=== PATIENT | male | born 1955 | race Caucasian/White ===

== ENCOUNTER 2019-03-25 13:01 | Outpatient (RCR) | payer MEDICARE, OTHER, SELFPAY ==
--- NOTE | 2019-04-01 14:12 | PTOPEVAL ---
Thank you for referring this patient to [facility]. Please review, sign, date and return this plan of care LENORA. I agree with and certify that the following plan of care is medically necessary. Referring Physician Date Admitting Provider: Attending Provider: PHYSICIAN NOT ON STAFF Referring Provider: *PT Outpatient Evaluation Start: 03/25/19 13:19 Freq: Status: Active Protocol: Document 03/25/19 13:15 J (Rec: 03/25/19 14:19 Cb [id number]) Therapy Assessment Status Assessment Status Assessment Status Evaluation Evaluation Information Problem Diagnosis s/p L SAGAR Onset 03/22/19 Subjective Information patient reports he had a total Query Text:As Reported By Patient/ hip replacement of the L hip Family on friday of this week. he reports he was in the hospital for friday night and came home friday. he reports he struggles with his walking, transfers, and home activities . he reports he lives alone. he reports he has 4 steps to enter and leave his home. he is unsure of which type of surgical procedure he had performed. Prior Level of Function Comments Additional Prior Level of Function prior to surgery, he reports Comments he was using a cane at home to ambulate at times, but reports he was able to get around without anything. he reports he was able to drive prior to surgery. Pain Assessment Timing of Pain Assessment Timing of Pain Assessment Assessment Pain Scale Pain Scale Used Numeric (1 - 10) Self Report Pain Assessment Left Hip(s) Reported Pain Level 4 Pain Description Aching,Dull Pain Frequency Acute Current Pain Intensity 4 Lowest Pain Intensity 3 Greatest Pain Intensity 8 Pain Aggravating Factors Changing Position,Walking, Weight Bearing/Standing Pain Relief Interventions Used By Medication Patient Other Alleviating Interventions norco, tramadol Pain Score Pain Score 4: Self Report Lower Extremity Range of Motion Hip Range of Motion Left Hip Flexion Range of Motion - Active 0 Hip Flexion Range of Motion - Passive 80 Hip Abduction Range of Motion - Passive 20 Hip Lateral Rotation - Active
--- NOTE | 2019-04-12 14:42 | PCPTNOTE ---
Patient cancelled treatment today. FRANCISCO
--- NOTE | 2019-04-29 13:41 | PCPTNOTE ---
04/29/19 - new order today per MD office. no restrictions in abduction or ER ROM. JTF
--- NOTE | 2019-05-04 15:22 | PTOPEVAL ---
Thank you for referring this patient to [facility]. Please review, sign, date and return this plan of care [facility]. I agree with and certify that the following plan of care is medically necessary. Referring Physician Date Admitting Provider: Attending Provider: PHYSICIAN NOT ON STAFF Referring Provider: *PT Outpatient Evaluation Start: 03/25/19 13:19 Freq: Status: Active Protocol: Document 05/04/19 13:00 Cb (Rec: 05/04/19 15:22 [facility] [id number]) Therapy Assessment Status Assessment Status Assessment Status Re-evaluation Evaluation Information Problem Diagnosis s/p L SAGAR Subjective Information patient reports he feels good Query Text:As Reported By Patient/ This date. he reports he Family still struggles with walking and strength in the L hip and LE. however, he is also complicated by weakness and pain in the R hip. he reports he has new orders to continue therapy from his MD. Pain Assessment Timing of Pain Assessment Timing of Pain Assessment Assessment Self Report Self Report Pain Level 0 Pain Score Pain Score 0: Self Report Additional Pain Score Comments 2/10 pain at worst in the last week. Lower Extremity Range of Motion Hip Range of Motion Left Hip Flexion Range of Motion - Active 75 Hip Flexion Range of Motion - Passive 85 Hip Abduction Range of Motion - Passive 35 Hip Lateral Rotation - Active 30 Lower Extremity Muscle Strength Testing Hip Strength Left Hip Flexion Strength 2+ Poor + Knee Strength Left Knee Flexion Strength 4+ Good + Knee Extension Strength 4 Good Gait Assessment Gait Assessment Additional Ambulation Comments patient ambulates with a scp in the R hand this date. patient ambulates with R trunk /trendelemburg lean and posterio hip thrust/forward trunk lean with R SLS phase of gait. PT Clinical Summary Clinical Summary Protocol: PTEVCODE Clinical Summary mr. harden tolerates therapy moderately well this date. he still presents with significant weakness, decreased rom, decreased flexibility, and overall poor ambulation endurance and mechanics. he would do well to continue skille
--- NOTE | 2019-05-20 13:15 | PCPTNOTE ---
05/20/19-pt called and cancelled, no reason stated.-
== END 2019-06-04 14:09 | disposition home or self-care (01) ==
LOC: CHSPT 13:01
DX: M16.12 Unilateral primary osteoarthritis, left hip (principal); M25.552 Pain in left hip; M25.551 Pain in right hip
CPT/HCPCS: 97110; 97161; 97530

== ENCOUNTER 2019-10-13 13:59 | Outpatient (RCR) | payer MEDICARE, OTHER, SELFPAY ==
--- NOTE | 2019-10-13 15:06 | PTOPEVAL ---
Thank you for referring Burton Rubi to [facility]. Please review, sign, date and return this plan of care LENORA. I agree with and certify that the following plan of care is medically necessary. Referring Physician Date Admitting Provider: Attending Provider: PHYSICIAN NOT ON STAFF Referring Provider: *PT Outpatient Evaluation Start: 10/13/19 14:12 Freq: Status: Active Protocol: Document 10/13/19 14:10 [facility] (Rec: 10/13/19 14:43 [facility] [id number]) Therapy Assessment Status Assessment Status Assessment Status Evaluation Evaluation Information Problem Diagnosis s/p R SAGAR Onset 09/07/19 Subjective Information patient reports he had the R Query Text:As Reported By Patient/ hip replacement on 09/07/19. Family he reports he was previously herre for replacement of the L hip in March. he reports he was told to hold off from therapy until his first follow up with . he reports he is now ready to begin outpatient physical therapy. he reports he is unsure of the type of replacement he had performed. he reports he does not have any precautions. Prior Level of Function Comments Additional Prior Level of Function patient reports he was working Comments on rehab of his L hip and preperation for the R hip for the past 3-6 monts. 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 he reports he works for the [employer] at the [employer]. Pain Assessment Timing of Pain Assessment Timing of Pain Assessment Assessment Pain Scale Pain Scale Used Numeric (1 - 10) Self Report Pain Assessment Right Hip(s) Reported Pain Level 0 Lowest Pain Intensity 0 Greatest Pain Intensity 0 Pain Score Pain Score 0: Self Report Lower Extremity Range of Motion General Lower Extremity Range of Motion Gross Lower Extremity Range of Motion -arom L hip flexion = 75 Comments degrees, prom L hip flexion = 90 degrees arom L hip ER = 45 degrees -arom R hip flexion = 65 degrees, prom R hip flexion =
--- NOTE | 2019-12-01 15:29 | PTOPEVAL ---
Thank you for referring Burton Rubi to [facility].? The patient is scheduled to be seen for therapy? ____x/week for ___ weeks. Please review, sign, date and return this plan of care LENORA. I agree with and certify that the following plan of care is medically necessary. Referring Physician Date Admitting Provider: Attending Provider: PHYSICIAN NOT ON STAFF Referring Provider: *PT Outpatient Evaluation Start: 10/13/19 14:12 Freq: Status: Active Protocol: Document 12/01/19 14:00 Cb (Rec: 12/01/19 15:28 [facility] [id number]) Therapy Assessment Status Assessment Status Assessment Status Re-evaluation Evaluation Information Problem Diagnosis s/p R SAGAR Subjective Information patient reports he feels good Query Text:As Reported By Patient/ this date. he reports he has Family no pain. he reports he has been back to the MD for follow up and reports he is to continue skilled PT for further strengthening and exercises to improve his ambulation and mobility. Pain Assessment Timing of Pain Assessment Timing of Pain Assessment Assessment Self Report Self Report Pain Level 0 Pain Score Pain Score 0: Self Report Lower Extremity Range of Motion General Lower Extremity Range of Motion Gross Lower Extremity Range of Motion prom R hip flexion to 70 Comments degrees Lower Extremity Muscle Strength Testing Hip Strength Right Hip Flexion Strength 4- Good - Hip Abduction Strength 4- Good - Left Hip Flexion Strength 4- Good - Hip Abduction Strength 4- Good - Knee Strength Bilateral Knee Flexion Strength 5 Normal Knee Extension Strength 5 Normal Muscle Length Testing Muscle Length Testing Left Hamstring Length 40 Query Text:(90 - 90 Position) Right Hamstring Length 50 Query Text:(90 - 90 Position) Gait Assessment Gait Assessment Ambulation Assistive Devices Cane Ambulation Distance 200 Query Text:(Feet) Additional Ambulation Comments patient ambulates with spc this date. he ambulates with flexed posture at the hips and lumbar spine still, but improved step/stride length bilaterally. he still presents with slow kit and poor stride length overall. patient ambulates up and down steps with marked time pattern and
--- NOTE | 2019-12-20 17:33 | PCPTNOTE ---
patient called and cancelled appt for today. FRANCISCO
--- NOTE | 2019-12-22 14:53 | PCPTNOTE ---
patient called and cancelled appt for today. FRANCISCO
--- NOTE | 2020-01-21 12:57 | PTOPEVAL ---
Thank you for referring Burton Rubi to [facility].? The patient is scheduled to be seen for therapy? ____x/week for ___ weeks. Please review, sign, date and return this plan of care LENORA. I agree with and certify that the following plan of care is medically necessary. Referring Physician Date Admitting Provider: Attending Provider: PHYSICIAN NOT ON STAFF Referring Provider: *PT Outpatient Evaluation Start: 10/13/19 14:12 Freq: Status: Discharge Protocol: Document 01/13/20 13:00 Cb (Rec: 01/20/20 21:49 [facility] [id number]) Therapy Assessment Status Assessment Status Assessment Status Re-evaluation Evaluation Information Problem Diagnosis s/p R SAGAR Subjective Information patient reports he feels good Query Text:As Reported By Patient/ this date. he reports no Family pain in the hips, but still weakness with walking and standing. he reports he is particpating in work activities, but reports he is unable to walk hardly any distances still. Pain Assessment Timing of Pain Assessment Timing of Pain Assessment Assessment Self Report Self Report Pain Level 0 Pain Score Pain Score 0: Self Report Lower Extremity Range of Motion General Lower Extremity Range of Motion Gross Lower Extremity Range of Motion sitting bilateral hip flexion Comments AROM = 100 degrees Lower Extremity Muscle Strength Testing General Lower Extremity Strength Gross Lower Extremity Strength L hip flex = 4/5, L hip abd = 4/5 R hip flex = 4-/5, R hip abd = 3+/5 bilateral knee strength = 5/5 patient is unable to hold a SLS on the R LE without immeidate hip drop on the L side and L foot contact back to the floor. Gait Assessment Gait Assessment Additional Ambulation Comments jaquelin attempts to walk the past 2 weeks without a cane. howver, he presents with significant trendelemburg hip drop of the L hip during R SLS . this results also in short bilateral strides, decreased kit, decreased endurance, and patient also presents with a more flexed posture at the hips.
--- NOTE | 2020-02-16 07:28 | PCPTNOTE ---
02/16/20 - patient called and reports he has been released by his surgeon. he reports he would like to DC therapy. as of this date, all progress towards goals will be taken from his most recent evaluation/note.
== END 2020-01-31 23:59 | disposition home or self-care (01) ==
LOC: CHSPT 13:59
PROVIDERS: PCP Internal Medicine
DX: M25.551 Pain in right hip (principal); Z96.643 Presence of artificial hip joint, bilateral
CPT/HCPCS: 97110; 97161; 97530

== ENCOUNTER 2021-07-04 00:39 | Day surgery (SDC) | payer MEDICARE, OTHER, SELFPAY ==
[2021-06-21 13:16] VITALS: BMI 32.8
[2021-07-04 06:47] VITALS: BP 176/79; PULSE 84; RESP 18; TEMP 36.3; O2SAT 99; BMI 33.2
[2021-07-04] MEDS: LACTATED RINGERS 1,000 ML 150 ML IV CONT (07:10)
--- NOTE | 2021-07-04 07:54 | PM.HPGS ---
History of Present Illness History of Present Illness Consent: Risks, benefits, and alternatives have been discussed and questions answered. Patient agrees to proceed with procedure. Chief complaint: positive cologuard Narrative: Burton Rubi is a 66 year old male here for first colonoscopy, had + cologuard Review of Systems Constitutional: Constitutional: Denies headache(s) and Denies weakness Eyes: Eyes: Denies blurry vision ENT: Reports Normal hearing present, Denies headache(s) and Denies neck pain Cardiovascular: Cardiovascular: Denies chest pain and Denies dyspnea Respiratory: Respiratory: Denies dyspnea Gastrointestinal: Gastrointestinal: Reports no additional gastrointestinal complaints Genitourinary: Genitourinary: Denies dysuria Musculoskeletal: Musculoskeletal: Denies neck pain Integumentary/Breasts: Skin/Breast: Denies dry skin Neurologic: Reports Normal hearing present, Denies headache(s) and Denies weakness Psychiatric: Psychiatric: Denies anxiety Endocrine: Endocrine: Denies change in body appearance Hematologic/Lymphatic: Hematologic/Lymphatic: Denies easy bleeding Allergic/Immunologic: Allergic/Immunologic: Denies urticaria PMFSH Past Medical History Medical History (Updated 07/04/21 @ 07:55 by Maurice Coleman MD) Positive colorectal cancer screening using Cologuard test Family History Family History (Updated 05/25/18 @ 08:51 by DOCTOR UNKNOWN) Father Family history of malignant neoplasm of urinary bladder, Onset Age: 3 Other Family history of malignant neoplasm Social History Social History Smoking status: Never smoker Alcohol intake: current Drinks per week: 6 Substance use type: does not use Living arrangements: alone Spiritual care concerns: No Meds Home Medications and Allergies Home Medications Medication Instructions Recorded Confirmed Type No Home Medications 06/21/21 07/04/21 History Allergies Allergy/AdvReac Type Severity Reaction Status Date / Time No Known Allergies Allergy Mild Verified 07/04/21 06:53 Vital Signs Vital Signs - 24 hr 07/04/21 06:47 Temperature 97.4 F L Pulse Rate 84 Respiratory Rate 18 Blood Pressure 176/79 H Pulse Oximetry 99 Exam Const: General: comfortable and no acute distress HENMT: General nose exam: Normal nares present Eyes: General: appearance normal, both eyes and all related structures Neck: Neck: no JVD Resp: Auscultation: clear to auscultation bilaterally Cardio: Rate: regular rate Rhythm: regular rhythm GI: Inspection: non-distended GI Palp: Yes Soft to palpation Skin: General skin exam: normal color Neuro: General: gait normal Speech: normal speech Extrem: General: normal to inspection Psych: Mental Status: mental status grossly normal Assessment and Plan Assessment and plan (1) Positive colorectal cancer screening using Cologuard test: Code(s): R19.5 - Other fecal abnormalities Status: Acute Assessment and Plan: colonoscopy
--- NOTE | 2021-07-04 08:03 | WPDANESEPPF ---
Anes - Initial Pre Proc Eval Procedure: Operation Date: 07/04/21 08:00 Proposed Procedures p Colonoscopy - Maurice Coleman MD Date/Time: 07/04/21 08:03 Surgeon: Maurice Coleman MD Pre Op Diagnosis: positive cologuard Patient Data Age: 66 Gender: M Height: 1.83 m Weight: 111.1 kg Last Vital Signs Temp 97.4 F L 07/04/21 06:47 Pulse 84 07/04/21 06:47 Resp 18 07/04/21 06:47 BP 176/79 H 07/04/21 06:47 Pulse Ox 99 07/04/21 06:47 Allergies Allergy/AdvReac Type Severity Reaction Status Date / Time No Known Allergies Allergy Mild Verified 07/04/21 06:53 Home Medications Medication Instructions Recorded Confirmed Type No Home Medications 06/21/21 07/04/21 History Patient hx anesthesia problems: none Family hx anesthesia problems: none Results Review: All pre-operative results and documents have been reviewed as part of the pre-operative evaluation. [facility] Past Medical History Medical History (Updated 07/04/21 @ 07:55 by Maurice Coleman MD) Positive colorectal cancer screening using Cologuard test Family History Family History (Updated 05/25/18 @ 08:51 by DOCTOR UNKNOWN) Father Family history of malignant neoplasm of urinary bladder, Onset Age: 3 Other Family history of malignant neoplasm Social History Social History Smoking status: Never smoker Alcohol intake: current Drinks per week: 6 Substance use type: does not use Living arrangements: alone Spiritual care concerns: No Anes - Eval Final PreProcedure Day of Procedure 07/04/21 08:03 Patient weight: obese Heart: regular rate and rhythm Lungs: clear to auscultation Airway: Mallampati scale class II Neurological: alert and oriented Last oral intake: >/= 8 hours ASA classification: II Emergent: no Anesthetic plan: proceed Anesthesia type and monitoring: general GIVS and standard monitoring Results Review: All pre-operative results and documents have been reviewed as part of the pre-operative evaluation. Informed Consent: The patient's anesthetic plan and its attendant risks and benefits were discussed with the patient/family/POA. Questions were solicited and answers provided to the satisfaction of the patient/family/POA.
[2021-07-04 08:37] VITALS: BP 139/71; PULSE 83; RESP 23; O2SAT 92
--- NOTE | 2021-07-04 08:40 | SUR.OPER ---
RETRIEVED 5 OF 6 ASCENDING COLON POLYPS. MD AWARE, NO NEW ORDERS AT THIS TIME.
[2021-07-04 08:47] VITALS: BP 146/65; PULSE 78; RESP 21; O2SAT 98
[2021-07-04 08:57] VITALS: BP 145/69; PULSE 73; RESP 19; O2SAT 100
== END 2021-07-04 09:10 | disposition home or self-care (01) ==
PROVIDERS: PCP Internal Medicine; Visit Provider Internal Medicine Gastroenterology
PROC: 0DJD8ZZ Inspection of Lower Intestinal Tract, Via Natural or Artificial Opening Endoscopic (ICD-10-PCS; CPT 45378; principal; 2021-07-04 08:00)
DX: R19.5 Other fecal abnormalities (principal); D12.2 Benign neoplasm of ascending colon; D12.3 Benign neoplasm of transverse colon; K63.5 Polyp of colon; K64.8 Other hemorrhoids; E66.9 Obesity, unspecified; Z68.33 Body mass index [BMI] 33.0-33.9, adult
CPT/HCPCS: 45385; 88305; J2704; J7120

== ENCOUNTER 2022-02-27 08:39 | Outpatient (CLI) | payer MEDICARE, OTHER, SELFPAY ==
--- NOTE | ~2022-02-27 | XR_ITS ---
Clinical Indication: Shortness of breath PA and lateral views of the chest: Comparison: 02/25/2019 Findings: The lungs are clear, without evidence of focal consolidation or pleural effusion. Cardiome diastinal silhouette is within normal limits. Bones and soft tissues are unremarkable. Impression: Normal chest. Reviewed, dictated and finalized at [facility]. LY CHAIN BUYER Impression: Normal chest.
--- NOTE | ~2022-02-27 | US_ITS ---
Abdominal Sonogram: Real-time sonographic imaging of the abdomen was performed. Clinical History: Cirrhosis Findings: The liver appears heterogeneous with nodular contour, compatible with cirrhosis. No focal hepatic mass or intrahepatic biliary dilatation identified. Main portal vein demonstrates normal dire ction of flow. The spleen is enlarged, measuring 21.4 cm in length. The gallbladder is partially dis tended, no evidence of gallstone. Gallbladder wall is markedly thickened, up to 14 mm. The common coleman e duct measures 3 mm. The pancreas, aorta, and IVC are largely obscured by bowel gas shadowing. The right kidney measures 11.4 cm in length and the left kidney measures 10.0 cm. There is no hydroneph rosis or renal calculus. Large simple right upper pole renal cyst measures up to 8.5 cm in diameter. Moderate abdominopelvic ascites noted. Impression: Cirrhotic liver with associated splenomegaly and moderate ascites. No focal hepatic mass or biliary d ilatation evident. Gallbladder wall thickening without gallstone. This is presumably related to the presence of ascites. Large simple right upper pole renal cyst. Reviewed, dictated and finalized at [facility]. OR SYSTEMS ADMINISTRATOR Impression: Cirrhotic liver with associated splenomegaly and moderate ascites. No focal hep atic mass or biliary dilatation evident. Gallbladder wall thickening without gallstone. This is presumably related to th e presence of ascites. Large simple right upper pole renal cyst.
[2022-02-27 09:00] LABS: Hematocrit 26.9 % (37.0-46.0); Immature Platelet Fraction Pct 2.7 % (1.0-7.0); Mean Corpuscular HGB Conc 29.7 g/dL (32.0-36.0); Mean Corpuscular Volume 74.1 fL (78.0-102.0); Mean Platelet Volume 10.7 fl (8.7-11.0); Platelet Count Result 74 K/mm3 (150-420); Red Blood Count 3.63 M/mm3 (4.70-6.10); Red Cell Distribution Width 18.5 % (11.6-14.4); White Blood Count 2.3 K/mm3 (4.8-10.8)
--- NOTE | 2022-02-27 09:10 | ECG_ITS ---
Measurements Intervals [place] Rate: 85 P: 15 NH: 170 QRS: 5 QRSD: 117 T: 5 QT: 413 QTc: 491 Interpretive Statements SINUS RHYTHM WITH OCCASIONAL VENTRICULAR PREMATURE COMPLEXES LOW QRS VOLTAGE IN PRECORDIAL LEADS [QRS DEFLECTION < 1.0 mV IN CHEST LEADS] MODERATE INTRAVENTRICULAR CONDUCTION DELAY [110+ ms QRS DURATION] ABNORMAL ECG COMPARED TO ECG 02/25/2019 13:29:57 INTRAVENTRICULAR CONDUCTION DELAY NOW PRESENT Electronically Signed On 02-28-2022 7:17:10 MOBILE MANAGER by Iggy Tamayo M.D.
[2022-02-27 09:25] LABS: Albumin Level 3.1 g/dL (3.4-5.0); Alkaline Phosphatase 77 U/L (46-116); Anion Gap 10 mmol/L (8-16); Aspartate Amino Transferase 30 U/L (15-37); Bilirubin,Total 0.9 mg/dL (0.00-1.00); Blood Urea Nitrogen 16 mg/dL (7-18); Calcium 8.2 mg/dL (8.5-10.1); Carbon Dioxide 24 mmol/L (21-32); Chloride 103 mmol/L (98-108); Estimated Glomerular Filt Rate 58; Glucose 113 mg/dL (70-99); NT Pro B Type Natriuretic Pept 151 pg/mL (0-125); Osmolality Calculated 286 mOsm/kg (285-295); Sodium 137 mmol/L (136-145); Total Protein 6.7 g/dL (6.4-8.2)
[2022-02-27 09:30] LABS: Band Neutrophils Percent 0 % (0-6); Basophils Absolute Manual 0.04 K/mm3 (0-0.1); Basophils Percent Manual 2 % (0-1); Eosinophils Absolute Manual 0.16 K/mm3 (0.02-0.5); Eosinophils Percent Manual 7 % (1-6); Lymphocytes Percent Manual 22 % (18-44); Monocytes Percent Manual 9 % (3-9); Neutrophils Absolute Manual 1.38 K/mm3 (1.3-6.7); Neutrophils Percent Manual 60 % (46-73); Platelet Estimate Decreased (Adequate); Total Cells Counted 100
[2022-02-27 09:42] LABS: Alanine Aminotransferase 18 U/L (16-63)
[2022-02-27 10:06] LABS: Add Urine Microscopic? YES; Appearance Urine Clear (Clear); Bilirubin Urine Negative (Negative); Blood Urine Negative (Negative); Color Urine Yellow (Yellow); Glucose Urine UA Negative (Negative); Ketones Urine Trace (Negative); Leukocyte Esterase Ur Negative (Negative); Nitrate Urine Negative (Negative); Protein Urine Negative (Negative); Urobilinogen Urine 0.2 mg/dL (0.2-1.0)
[2022-02-27 10:11] LABS: RBC Urine None seen /hpf (0-2); WBC Urine None seen /hpf (0-3)
[2022-02-27 10:12] LABS: Bacteria Urine Trace /hpf; Mucus Urine Few /lpf
== END 2022-02-27 08:40 | disposition home or self-care (01) ==
LOC: CHSIMG 08:42
PROVIDERS: PCP Internal Medicine; Visit Provider Internal Medicine
DX: I50.22 Chronic systolic (congestive) heart failure (principal); K74.60 Unspecified cirrhosis of liver; R16.1 Splenomegaly, not elsewhere classified; N28.1 Cyst of kidney, acquired; R94.31 Abnormal electrocardiogram [ECG] [EKG]
CPT/HCPCS: 36415; 71046; 76700; 80053; 81001; 83880; 84443; 85025; 85055; 93005

== ENCOUNTER 2022-05-21 13:57 | Outpatient (CLI) | payer MEDICARE, OTHER, SELFPAY ==
--- NOTE | ~2022-05-21 | XR_ITS ---
EXAMINATION: XR chest 2V Exam Date/Time: 05/21/2022 14:25 CDT HISTORY: CIRROHOSIS FU, CHF FU, COUGH,SOB-CHRONIC,X1MO Comparison: 02/27/2022. RESULT: Lines, tubes, and devices: None. Lungs and pleura: Slightly low lung volumes. Left hemidiaphragm elevation. Minimal streaky bibasilar atelectasis/scar, lungs otherwise clear. Cardiomediastinal silhouette: Stable. Prominent central pulmonary arteries as can be seen with pulmo nary arterial hypertension. Other: No acute osseous or upper abdominal finding. Old right seventh lateral rib fracture. IMPRESSION: No acute cardiopulmonary process. Reviewed, dictated and finalized at location K.
[2022-05-21 14:35] LABS: Hematocrit 28.7 % (37.0-46.0); Immature Platelet Fraction Pct 2.6 % (1.0-7.0); Mean Corpuscular HGB Conc 31.4 g/dL (32.0-36.0); Mean Corpuscular Hemoglobin 23.5 pg (27.0-31.0); Mean Corpuscular Volume 74.9 fL (78.0-102.0); Mean Platelet Volume 10.3 fl (8.7-11.0); Platelet Count Result 60 K/mm3 (150-420); Red Blood Count 3.83 M/mm3 (4.70-6.10); Red Cell Distribution Width 22.8 % (11.6-14.4); White Blood Count 1.8 K/mm3 (4.8-10.8)
[2022-05-21 15:14] LABS: INR 1.3; Partial Thromboplastin Time 28.2 SEC (23.90-30.70); Prothrombin Time 13.9 Seconds (9.50-12.10)
[2022-05-21 15:16] LABS: Alanine Aminotransferase 22 U/L (16-63); Alkaline Phosphatase 60 U/L (46-116); Ammonia 19 umol/L (11-32); Anion Gap 9 mmol/L (8-16); Aspartate Amino Transferase 28 U/L (15-37); Bilirubin,Total 1.4 mg/dL (0.00-1.00); Blood Urea Nitrogen 15 mg/dL (7-18); Calcium 8.7 mg/dL (8.5-10.1); Carbon Dioxide 25 mmol/L (21-32); Chloride 103 mmol/L (98-108); Estimated Glomerular Filt Rate > 60; Ferritin 42 ng/mL (26-388); Glucose 113 mg/dL (70-99); Iron 34 ug/dL (65-175); Magnesium 1.6 mg/dL (1.8-2.4); NT Pro B Type Natriuretic Pept 160 pg/mL (0-125); Osmolality Calculated 285 mOsm/kg (285-295); Percent Iron Saturation 11 % (12-57); Phosphorus 3.4 mg/dL (2.6-4.7); Potassium 4.8 mmol/L (3.5-5.1); Sodium 137 mmol/L (136-145); Total Protein 6.7 g/dL (6.4-8.2)
[2022-05-21 15:56] LABS: Band Neutrophils Percent 0 % (0-6); Basophils Percent Manual 0 % (0-1); Eosinophils Absolute Manual 0.16 K/mm3 (0.02-0.5); Eosinophils Percent Manual 9 % (1-6); Lymphocytes Absolute Manual 0.55 K/mm3 (1.1-4.5); Lymphocytes Percent Manual 31 % (18-44); Monocytes Absolute Manual 0.07 K/mm3 (0.1-0.90); Monocytes Percent Manual 4 % (3-9); Neutrophils Percent Manual 56 % (46-73); Platelet Estimate Decreased (Adequate); Total Cells Counted 100
[2022-05-24 11:33] LABS: Fibrinogen 195 mg/dL (175-425)
== END 2022-05-21 13:58 | disposition home or self-care (01) ==
LOC: CHSLAB 13:59
PROVIDERS: PCP Internal Medicine; Visit Provider Internal Medicine
DX: K74.60 Unspecified cirrhosis of liver (principal); I50.9 Heart failure, unspecified; R05.9 Cough, unspecified
CPT/HCPCS: 36415; 71046; 80053; 82140; 82728; 83540; 83550; 83735; 83880; 84100; 85025; 85055; 85290; 85384; 85610; 85730

== ENCOUNTER 2022-06-27 11:40 | Outpatient (CLI) | payer MEDICARE, OTHER, SELFPAY ==
[2022-06-27 12:23] LABS: Hematocrit 27.7 % (37.0-46.0); Hemoglobin 8.9 g/dL (12.4-15.3); Immature Platelet Fraction Pct 2.3 % (1.0-7.0); Mean Corpuscular HGB Conc 32.1 g/dL (32.0-36.0); Mean Corpuscular Hemoglobin 25.5 pg (27.0-31.0); Mean Corpuscular Volume 79.4 fL (78.0-102.0); Mean Platelet Volume 9.3 fl (8.7-11.0); Platelet Count Result 55 K/mm3 (150-420); Red Blood Count 3.49 M/mm3 (4.70-6.10); Red Cell Distribution Width 20.3 % (11.6-14.4); White Blood Count 1.6 K/mm3 (4.8-10.8)
[2022-06-27 12:35] LABS: INR 1.2; Prothrombin Time 13.4 Seconds (9.50-12.10)
[2022-06-27 13:33] LABS: Alanine Aminotransferase 25 U/L (16-63); Albumin Level 2.8 g/dL (3.4-5.0); Alkaline Phosphatase 65 U/L (46-116); Anion Gap 11 mmol/L (8-16); Aspartate Amino Transferase 26 U/L (15-37); Bilirubin,Total 1.7 mg/dL (0.00-1.00); Blood Urea Nitrogen 18 mg/dL (7-18); Calcium 8.6 mg/dL (8.5-10.1); Carbon Dioxide 25 mmol/L (21-32); Chloride 101 mmol/L (98-108); Estimated Glomerular Filt Rate > 60; Glucose 97 mg/dL (70-99); Magnesium 1.8 mg/dL (1.8-2.4); NT Pro B Type Natriuretic Pept 125 pg/mL (0-125); Osmolality Calculated 285 mOsm/kg (285-295); Sodium 137 mmol/L (136-145); Total Protein 6.4 g/dL (6.4-8.2)
[2022-07-02 04:49] LABS: Hepatitis A Antibody IgM Nonreactive; Hepatitis B Core Antibody Nonreactive (Nonreactive); Hepatitis B Surface Antigen Nonreactive (Nonreactive); Hepatitis C Signal to Cutoff 0.03 ratio (<1.00); Hepatitis C Virus Antibody Nonreactive (Nonreactive)
[2022-07-02 21:38] LABS: Mitochondrial (M2) Ab (IgG) <=20.0 U (<=20.0)
[2022-07-03 20:13] LABS: Ceruloplasmin 31 mg/dL (18-36)
== END 2022-06-27 11:41 | disposition home or self-care (01) ==
LOC: CHSLAB 11:47
PROVIDERS: PCP Internal Medicine; Visit Provider Internal Medicine Gastroenterology
DX: K70.30 Alcoholic cirrhosis of liver without ascites (principal); R74.8 Abnormal levels of other serum enzymes; I50.9 Heart failure, unspecified; K74.60 Unspecified cirrhosis of liver
CPT/HCPCS: 36415; 80053; 80074; 82390; 83520; 83735; 83880; 85027; 85055; 85610; 86038

== ENCOUNTER 2022-07-03 09:14 | Outpatient (CLI) | payer MEDICARE, OTHER, SELFPAY ==
--- NOTE | ~2022-07-03 | US_ITS ---
EXAMINATION: US paracentesis abd w/image DATE: 07/03/2022 10:18 INDICATION: Ascites. TECHNIQUE: The procedure and its risks, benefits, and alternatives were discussed with the patient. P otential risks discussed included bleeding and infection. The skin was prepped and draped in sterile fashion. 1% lidocaine was used for local anesthesia. Under ultrasound guidance, a 5 Fr catheter with trochar was advanced into the ascites in the left lower quadrant. Fluid was aspirated. The catheter w as removed, and a dressing was applied. There were no immediate complications. FINDINGS: Ultrasound images demonstrate ascites and the catheter within the fluid. IMPRESSION: 1. Successful ultrasound-guided paracentesis yielding 5000 mL of clear, yellow fluid. Reviewed, dictated and finalized at location A.
[2022-07-03 11:16] LABS: Appearance Peritoneal Fluid Cloudy (Clear); Color Peritoneal Fluid Yellow (Colorless); Lymphocytes Peritoneal Fluid 34 %; Macrophages Peritoneal Fluid 19 %; Mesothelial Cells Peritoneal Fluid 7 %; Monocytes Peritoneal Fluid 36 %; Neutrophils Peritoneal Fluid 4 % (0-25); Nucleated Cells Peritoneal Flu 168 /uL (0-500); Source Peritoneal Fluid Peritoneal Fluid
[2022-07-16 10:41] LABS: RBC Peritoneal Fluid < 2000 /uL (0-100000)
== END 2022-07-03 09:15 | disposition home or self-care (01) ==
PROVIDERS: PCP Internal Medicine; Visit Provider Internal Medicine Gastroenterology
DX: K70.30 Alcoholic cirrhosis of liver without ascites (principal)
CPT/HCPCS: 49083; 82042; 89051

== ENCOUNTER 2022-07-31 08:54 | Outpatient (CLI) | payer MEDICARE, OTHER, SELFPAY ==
--- NOTE | ~2022-07-31 | US_ITS ---
EXAMINATION: US paracentesis abd w/image DATE: 07/31/2022 10:21 INDICATION: Ascites. TECHNIQUE: The procedure and its risks and benefits were discussed with the patient. Potential risks discussed included bleeding and infection. The skin was prepped and draped in sterile fashion. 1% lid ocaine was used for local anesthesia. Under ultrasound guidance, a 5 Fr catheter with trochar was adv anced into the ascites in the left lower quadrant. Fluid was aspirated into vacuum bottles. The janice ter was removed, and a dressing was applied. There were no immediate complications. FINDINGS: Ultrasound images demonstrate ascites and the catheter within the fluid. IMPRESSION: 1. Successful ultrasound-guided paracentesis yielding 5000 mL of clear yellow fluid. Reviewed, dictated and finalized at location A.
== END 2022-07-31 08:55 | disposition home or self-care (01) ==
PROVIDERS: PCP Internal Medicine; Visit Provider Internal Medicine Gastroenterology
DX: R18.8 Other ascites (principal)
CPT/HCPCS: 49083

== ENCOUNTER 2022-08-12 00:39 | Day surgery (SDC) | payer MEDICARE, OTHER, SELFPAY ==
[2022-07-31 14:00] VITALS: BMI 30.6
[2022-08-12 08:36] VITALS: BP 144/66; PULSE 82; RESP 18; TEMP 35.9; O2SAT 100; BMI 31.4
[2022-08-12] MEDS: LACTATED RINGERS 1,000 ML 150 ML IV CONT (08:50)
--- NOTE | 2022-08-12 08:59 | P.PNAN_ITS ---
Anes - Initial Pre Proc Eval Procedure: Operation Date: 08/12/22 10:00 Proposed Procedures p Esophagogastroduodenoscopy - Maurice Coleman MD Date/Time: 08/12/22 08:59 Surgeon: Maurice Coleman MD Pre Op Diagnosis: ARLD Patient Data Age: 67 Gender: M Height: 1.83 m Weight: 105 kg Last Vital Signs Temp 35.9 C L 08/12/22 08:36 Pulse 82 08/12/22 08:36 Resp 18 08/12/22 08:36 BP 144/66 H 08/12/22 08:36 Pulse Ox 100 08/12/22 08:36 O2 Del Method Room Air 08/12/22 08:36 Allergies Allergy/AdvReac Type Severity Reaction Status Date / Time No Known Allergies Allergy Mild Verified 08/12/22 08:35 Home Medications Medication Instructions Recorded Confirmed Type cholecalciferol (vitamin D3) 62.5 62.5 mcg PO DAILY 06/27/22 08/12/22 History mcg (2,500 unit) capsule ferrous sulfate 325 mg (65 mg 325 mg PO .Every Other Day 06/27/22 08/12/22 History iron) tablet furosemide 40 mg tablet 40 mg PO QAM 06/27/22 08/12/22 History magnesium oxide 400 mg PO BID 06/27/22 08/12/22 History spironolactone 50 mg tablet 100 mg PO DAILY 1 month #60 tabs 06/27/22 08/12/22 Rx vit B complex 100 combo no.2 100 1 tablet PO DAILY 06/27/22 08/12/22 History mg tablet,extended release (B-100 Complex ER) zinc sulfate 50 mg zinc (220 mg) 50 mg PO DAILY #30 caps 06/27/22 08/12/22 Rx capsule Patient hx anesthesia problems: none Family hx anesthesia problems: none Results Review: All pre-operative results and documents have been reviewed as part of the pre- operative evaluation. [facility] Past Medical History Medical History Adenomatous colon polyp Ascites Cirrhosis, alcoholic History of alcohol abuse Pancytopenia Positive colorectal cancer screening using Cologuard test Family History Family History Father Family history of malignant neoplasm of urinary bladder, Onset Age: 3 Other Family history of malignant neoplasm Social History Social History Smoking status: Never smoker Alcohol intake: former Drinks per week: 6 Substance use type: does not use Living arrangements: alone Spiritual care concerns: No Anes - Eval Final PreProcedure Day of Procedure 08/12/22 08:59 Patient weight: overweight Heart: regular rate and rhythm Lungs: clear to auscultation Airway: Mallampati scale class II Neurological: alert and oriented Last oral intake: >/= 8 hours ASA classification: IV Emergent: no Anesthetic plan: proceed Anesthesia type and monitoring: general GIVS and standard monitoring Results Review: All pre-operative results and documents have been reviewed as part of the pre- operative evaluation. Informed Consent: The patient's anesthetic plan and its attendant risks and benefits were discussed with the patient/family/POA. Questions were solicited and answers provided to the satisfaction of the patient/family/POA.
--- NOTE | 2022-08-12 09:27 | PM.HPGS ---
History of Present Illness History of Present Illness Consent: Risks, benefits, and alternatives have been discussed and questions answered. Patient agrees to proceed with procedure. Chief complaint: ARLD Narrative: Burton Rubi is a 67 year old male with alcoholic cirrhosis, never had egd. Review of Systems Constitutional: Constitutional: Denies headache(s) Eyes: Eyes: Denies blurry vision ENT: Reports Normal hearing present, Denies headache(s) and Denies neck pain Cardiovascular: Cardiovascular: Denies chest pain and Denies dyspnea Respiratory: Respiratory: Denies dyspnea Gastrointestinal: Gastrointestinal: Reports no additional gastrointestinal complaints Genitourinary: Genitourinary: Denies dysuria Musculoskeletal: Musculoskeletal: Denies neck pain Integumentary/Breasts: Skin/Breast: Denies dry skin Neurologic: Reports Normal hearing present, Denies headache(s) and Denies weakness Psychiatric: Psychiatric: Denies anxiety Endocrine: Endocrine: Denies change in body appearance Hematologic/Lymphatic: Hematologic/Lymphatic: Denies easy bleeding Allergic/Immunologic: Allergic/Immunologic: Denies urticaria PMFSH Past Medical History Medical History Adenomatous colon polyp Ascites Cirrhosis, alcoholic History of alcohol abuse Pancytopenia Positive colorectal cancer screening using Cologuard test Family History Family History Father Family history of malignant neoplasm of urinary bladder, Onset Age: 3 Other Family history of malignant neoplasm Social History Social History Smoking status: Never smoker Alcohol intake: former Drinks per week: 6 Substance use type: does not use Living arrangements: alone Spiritual care concerns: No Meds Home Medications and Allergies Home Medications Medication Instructions Recorded Confirmed Type cholecalciferol (vitamin D3) 62.5 62.5 mcg PO DAILY 06/27/22 08/12/22 History mcg (2,500 unit) capsule ferrous sulfate 325 mg (65 mg 325 mg PO .Every Other Day 06/27/22 08/12/22 History iron) tablet furosemide 40 mg tablet 40 mg PO QAM 06/27/22 08/12/22 History magnesium oxide 400 mg PO BID 06/27/22 08/12/22 History spironolactone 50 mg tablet 100 mg PO DAILY 1 month #60 tabs 06/27/22 08/12/22 Rx vit B complex 100 combo no.2 100 1 tablet PO DAILY 06/27/22 08/12/22 History mg tablet,extended release (B-100 Complex ER) zinc sulfate 50 mg zinc (220 mg) 50 mg PO DAILY #30 caps 06/27/22 08/12/22 Rx capsule Allergies Allergy/AdvReac Type Severity Reaction Status Date / Time No Known Allergies Allergy Mild Verified 08/12/22 08:35 Vital Signs Vital Signs - 24 hr 08/12/22 08:36 Temperature 96.7 F L Pulse Rate 82 Respiratory Rate 18 Blood Pressure 144/66 H Pulse Oximetry 100 Oxygen Delivery Room Air Exam Const: General: comfortable and no acute distress HENMT: Face/Nose/Sinus: Normal nares present Eyes: General: appearance normal, both eyes and all related structures Neck: Neck: no JVD Resp: Auscultation: clear to auscultation bilaterally Cardio: Rate: regular rate Rhythm: regular rhythm GI: Inspection: distended GI Palp: Yes Soft to palpation and No Tenderness to palpation present (GI) Percussion: Yes Fluid wave present Skin: General skin exam: normal color Neuro: General: gait normal Speech: normal speech Extrem: General: normal to inspection Psych: Mental Status: mental status grossly normal Assessment and Plan Assessment and plan (1) Cirrhosis, alcoholic: Code(s): K70.30 - Alcoholic cirrhosis of liver without ascites Status: Acute Assessment and Plan: egd today to assess if portal htn, varices, etc he already has an appointment with hepatology at [facility] by the end of the month (2) Ascites:
[2022-08-12 09:45] VITALS: BP 129/63; PULSE 67; RESP 22; O2SAT 100
[2022-08-12 09:55] VITALS: BP 122/62; PULSE 69; RESP 22; O2SAT 100
[2022-08-12 10:05] VITALS: BP 120/63; PULSE 68; RESP 23; O2SAT 100
== END 2022-08-12 10:22 | disposition home or self-care (01) ==
PROVIDERS: PCP Internal Medicine; Visit Provider Internal Medicine Gastroenterology
PROC: 0DJ08ZZ Inspection of Upper Intestinal Tract, Via Natural or Artificial Opening Endoscopic (ICD-10-PCS; CPT 43235; principal; 2022-08-12 10:00)
DX: K70.30 Alcoholic cirrhosis of liver without ascites (principal); I85.10 Secondary esophageal varices without bleeding; K29.70 Gastritis, unspecified, without bleeding
CPT/HCPCS: 43239; 88305; J2704; J7120

== ENCOUNTER 2022-09-04 09:02 | Outpatient (CLI) | payer MEDICARE, OTHER, SELFPAY ==
--- NOTE | ~2022-09-04 | US_ITS ---
EXAMINATION: US paracentesis abd w/image DATE: 09/04/2022 10:27 INDICATION: Ascites. TECHNIQUE: The procedure and its risks and benefits were discussed with the patient. Potential risks discussed included bleeding and infection. The skin was prepped and draped in sterile fashion. 1% lid ocaine was used for local anesthesia. Under ultrasound guidance, a 5 Fr catheter with trochar was adv anced into the ascites in the left lower quadrant. Fluid was aspirated into vacuum bottles. The janice ter was removed, and a dressing was applied. There were no immediate complications. FINDINGS: Ultrasound images demonstrate ascites and the catheter within the fluid. IMPRESSION: 1. Successful ultrasound-guided paracentesis yielding 5000 mL of allison-colored fluid. Reviewed, dictated and finalized at location A.
[2022-09-04 09:14] LABS: Mean Platelet Volume 9.5 fl (7.4-10.4); Platelet Count Result 50 k/mm3 (150-375)
[2022-09-04 09:24] LABS: INR 1.3; Prothrombin Time 17.5 Seconds (11.1-14.7)
== END 2022-09-04 09:03 | disposition home or self-care (01) ==
PROVIDERS: Radiology Diagnostic Radiology; PCP Internal Medicine; Visit Provider Internal Medicine Gastroenterology
DX: R18.8 Other ascites (principal)
CPT/HCPCS: 36415; 49083; 85049; 85610

== ENCOUNTER 2022-09-25 12:26 | Outpatient (CLI) | payer MEDICARE, OTHER, SELFPAY ==
--- NOTE | ~2022-09-25 | US_ITS ---
EXAMINATION: US paracentesis abd w/image DATE: 09/25/2022 13:28 INDICATION: Ascites. TECHNIQUE: The procedure and its risks, benefits, and alternatives were discussed with the patient. P otential risks discussed included bleeding and infection. The skin was prepped and draped in sterile fashion. 1% lidocaine was used for local anesthesia. Under ultrasound guidance, a 5 Fr catheter with trochar was advanced into the ascites in the left lower quadrant. Fluid was aspirated. The catheter w as removed, and a dressing was applied. There were no immediate complications. FINDINGS: Ultrasound images demonstrate ascites and the catheter within the fluid. IMPRESSION: 1. Successful ultrasound-guided paracentesis yielding 5000 mL of clear, yellow fluid. Reviewed, dictated and finalized at location A.
== END 2022-09-25 12:27 | disposition home or self-care (01) ==
PROVIDERS: PCP Internal Medicine; Visit Provider Internal Medicine Gastroenterology
DX: R18.8 Other ascites (principal)
CPT/HCPCS: 49083

== ENCOUNTER 2022-10-04 18:25 | Inpatient (IN) | payer MEDICARE, OTHER, SELFPAY ==
[2022-10-04] VITALS (10 sets, daily range): BP systolic 110–145; BP diastolic 64–72; PULSE 81–100; RESP 10–24; TEMP 36.8; O2SAT 98–100
--- NOTE | ~2022-10-04 | US_ITS ---
US paracentesis abd w/image DATE: 10/06/2022 13:07 INDICATION: Prominent ascites TECHNIQUE: The purpose of the procedure, technique and potential locations were discussed with the pa poncent indicated understanding and gave consent. The skin over the anterior left mid abdomen was prepared with sterile Betadine solution. Sterile drap e was applied. 1% lidocaine local anesthetic was administered to the skin and underlying subcutaneous tissues. A single stick needle/catheter was introduced into the peritoneal cavity and eventually with ultrasou nd guidance. Yellowish ascites was noted at the hub of the needle. The catheter was advanced over the needle and the needle withdrawn. 5000 CC of dark yellow ascites was drained uneventfully into vacuum bottles.. IMPRESSION: Successful ultrasound-guided percutaneous drainage of 5 Liters of dark yellow ascites Reviewed, dictated and finalized at Location A. Reviewed, dictated and finalized at location A. IMPRESSION: Successful ultrasound-guided percutaneous drainage of 5 Liters of d ark yellow ascites
--- NOTE | ~2022-10-04 | US_ITS ---
US paracentesis abd w/image DATE: 10/05/2022 11:35 INDICATION: Ascites TECHNIQUE: The purpose of the procedure, technique and it can't location discussed with the patient. The patient has had multiple prior paracentesis procedures and verbalized understanding and gave cons ent. The skin over the anterolateral left abdomen was performed with sterile Betadine solution. Sterile dr ape was applied. 1% lidocaine local anesthetic was administered to the skin and underlying soft tissu es. A single stick needle/catheter was introduced into the peritoneal cavity uneventfully. Ascitic fl uid was evident at the hilum of the catheter; the catheter was advanced over the needle and the needl e was withdrawn. 5 L of dark yellow ascites was drained uneventfully into vacuum bottles. The patient was very cooperative and tolerated the procedure without complaint or apparent complicati on. IMPRESSION: Ultrasound-guided percutaneous paracentesis procedure yielding 5 L dark yellow ascites Reviewed, dictated and finalized at Location A. Reviewed, dictated and finalized at location A.
--- NOTE | ~2022-10-04 | XR_ITS ---
XR chest 1V portable DATE: 10/05/2022 01:39 INDICATION: Shortness of breath. Liver failure. TECHNIQUE: Portable AP chest on 10/05/2022 at 0136 hours COMPARISON: 05/21/2022 2 view chest FINDINGS: There is mild infiltrate or atelectasis at the left lung base. The lungs otherwise appear c lear. Heart size appears within normal range. No pleural effusion or pulmonary vascular congestion or pneum othorax is evident. IMPRESSION: Mild infiltrate or atelectasis at the left lung base Reviewed, dictated and finalized at location A.
--- NOTE | ~2022-10-04 | US_ITS ---
EXAMINATION: US paracentesis abd w/image DATE: 10/08/2022 15:26 INDICATION: Ascites. TECHNIQUE: The procedure and its risks, benefits, and alternatives were discussed with the patient. P otential risks discussed included bleeding and infection. The skin was prepped and draped in sterile fashion. 1% lidocaine was used for local anesthesia. Under ultrasound guidance, a 5 Fr catheter with trochar was advanced into the ascites in the left lower quadrant. Fluid was aspirated. The catheter w as removed, and a dressing was applied. There were no immediate complications. FINDINGS: Ultrasound images demonstrate ascites and the catheter within the fluid. IMPRESSION: 1. Successful ultrasound-guided paracentesis yielding 5000 mL of yellow fluid. Reviewed, dictated and finalized at location B.
[2022-10-04 21:13] LABS: Basophils Percent Auto 1.3 % (0.2-1.2); Eosinophils Absolute Auto 0.2 K/mm3 (0-0.3); Eosinophils Percent Auto 6.7 % (0-4.4); Hematocrit 32.3 % (42.0-52.0); Hemoglobin 10.8 g/dL (14.0-18.0); Immature Granulocyte Absolute 0.01 K/mm3 (0.00-0.031); Immature Granulocyte Percent A 0.4 % (0-0.5); Immature Platelet Fraction Pct 1.8 % (0.9-11.2); Lymphocytes Absolute Auto 0.75 K/mm3 (0.9-3.2); Lymphocytes Percent Auto 31.4 % (18.3-44.2); Mean Corpuscular HGB Conc 33.4 g/dl (32-36); Mean Corpuscular Hemoglobin 28.3 pg (26-34); Mean Corpuscular Volume 84.8 fl (80-100); Monocytes Absolute Auto 0.2 K/mm3 (0.1-0.6); Monocytes Percent Auto 8.8 % (2.6-8.5); Neutrophils Absolute Auto 1.2 K/mm3 (1.3-6.7); Neutrophils Percent Auto 51.4 % (45.5-73.1); Platelet Count Result 67 k/mm3 (150-375); Red Blood Count 3.81 M/mm3 (4.6-6.20); White Blood Count 2.4 K/mm3 (4.5-10.0)
[2022-10-04 21:24] LABS: Ammonia < 9 umol/L (9-30); Lactic Acid Reflex 1.5 mmol/L (0.7-2.0)
[2022-10-04 21:26] LABS: Alanine Aminotransferase 28 U/L (6-50); Albumin Level 3.1 g/dL (3.5-5.1); Alkaline Phosphatase 89 U/L (38-126); Anion Gap 8 mmol/L (8-16); Aspartate Amino Transferase 41 U/L (17-59); Bilirubin,Total 3.1 mg/dL (0.2-1.3); Blood Urea Nitrogen 21 mg/dL (9-20); Calcium 8.5 mg/dL (8.4-10.2); Carbon Dioxide 25 mmol/L (22-30); Chloride 94 mmol/L (98-107); Estimated CRCL calculation 60 ml/min; Estimated Glomerular Filt Rate 55; Glucose 88 mg/dL (65-110); Lipase 177 U/L (23-300); Potassium 3.9 mmol/L (3.4-5.0); Sodium 127 mmol/L (137-145)
[2022-10-04 21:33] LABS: Platelet Estimate Decreased (Adequate)
[2022-10-04 21:34] LABS: Anisocytosis 2+ (NORMAL); Schistocytes None Seen (NORMAL)
[2022-10-04 21:34] LABS: NT Pro B Type Natriuretic Pept 229 pg/mL (19.9-100)
[2022-10-04 21:37] LABS: Troponin I < 0.012 ng/mL (0.000-0.034)
[2022-10-04 22:52] LABS: Appearance Urine Clear (Clear); Bacteria Urine None Seen /hpf; Bilirubin Urine 1+ (Negative); Blood Urine Negative (Negative); Color Urine Dark Yellow (Yellow); Glucose Urine UA Negative (Negative); Ketones Urine Trace mg/dL (Negative); Leukocyte Esterase Ur Trace LEU/UL (Negative); Nitrate Urine Negative (Negative); Protein Urine Negative (Negative); RBC Urine 0-2 /hpf (0-2); Specific Grav Ur 1.016 (1.001-1.035); Squamous Epithelial Cell Urine None seen /hpf (Few); WBC Urine 0-5 /hpf; pH Urine 5.5 (5.0-9.0)
[2022-10-04 23:04] LABS: Add Urine Microscopic? YES
[2022-10-04 23:30] LABS: INR 1.3; Prothrombin Time 17.1 Seconds (11.1-14.7)
[2022-10-04 23:31] LABS: Partial Thromboplastin Time 35.1 SECONDS (22.3-36.8)
[2022-10-05] VITALS (7 sets, daily range): BP systolic 118–143; BP diastolic 52–66; PULSE 73–90; RESP 13–22; TEMP 36.6–36.9; O2SAT 99–100; BMI 35.2
--- NOTE | 2022-10-05 01:13 | ED.RECABL ---
HPI - Recheck/Abnormal Lab/Rx General Chief Complaint: Recheck/Abnormal Lab/Rx Stated Complaint: generalized edema Time Seen by Provider: 10/05/22 00:04 Source: patient Mode of arrival: ambulatory Limitations: no limitations History of Present Illness HPI narrative: This is a 67-year-old male that presents to the emergency department for abdominal swelling. Worsening over the last 2 weeks. History of cirrhosis. His last paracentesis was about a week and a half ago. Reports his swelling is getting to the point again of it being difficult for him to breathe. Also reports worsening pedal and lower extremity edema. He is unable to put on any shoes. Denies fever, vomiting, or abdominal pain. Related Data Home Medications Medication Instructions Recorded Confirmed cholecalciferol (vitamin D3) 62.5 62.5 mcg PO DAILY 06/27/22 10/05/22 mcg (2,500 unit) capsule ferrous sulfate 325 mg (65 mg 325 mg PO .Every Other Day 06/27/22 10/05/22 iron) tablet magnesium oxide 400 mg PO BID 06/27/22 10/05/22 vit B complex 100 combo no.2 100 1 tablet PO DAILY 06/27/22 10/05/22 mg tablet,extended release (B-100 Complex ER) Allergies Allergy/AdvReac Type Severity Reaction Status Date / Time No Known Allergies Allergy Mild Verified 09/26/22 09:36 Review of Systems Review of Systems: CONSTITUTIONAL: Denies fever GASTROINTESTINAL: Denies abdominal pain, nausea, vomiting All systems reviewed & are unremarkable except as noted in HPI and below PMFSH Past Medical History Medical History (Updated 10/05/22 @ 04:33 by Kori Ortega PA-C) Adenomatous colon polyp Ascites Cirrhosis, alcoholic History of alcohol abuse Leg edema Pancytopenia Positive colorectal cancer screening using Cologuard test Family History Family History Father Family history of malignant neoplasm of urinary bladder, Onset Age: 3 Other Family history of malignant neoplasm Social History Social History Smoking status: Never smoker Alcohol intake: former Drinks per week: 6 Substance use type: does not use Lack of Transportation: No Lack of Food: Never True Current Housing: I Have Housing Concerned About Future Housing: No Difficulty Paying Gas/Electric Bills: No Difficulty Paying for Meds: No Currently Unemployed: No Education: High School Diploma/GED Difficulty w/ Childcare or Family Care: No Living arrangements: alone Spiritual care concerns: No Exam Narrative: GENERAL: Chronically ill-appearing, and in no acute distress. HEAD: Normocephalic, atraumatic. EYES: EOMI. ENT: Mucous membranes moist. CHEST: Clear to auscultation. No respiratory distress. No wheezes rales or rhonchi HEART: Regular rate and rhythm. No murmur heard. Normal peripheral pulses. ABDOMEN: Distended. Soft, nontender, normal active bowel sounds. EXTREMITIES: Normal range of motion. Severe pitting edema to the bilateral lower extremities SKIN: Warm, dry, no rash. NEURO: No focal deficits. Alert and oriented x3. PSYCH: Normal mood and affect Course Course Emergency Course: Patient updated on all workup and agrees with plan of care Consultations Consultation #1: Spoke with hospitalist about the patient and workup who accepts admission Date: 10/05/22 Vital Signs Vital signs: Vital Signs Temperature 98.2 F 10/04/22 18:52 Pulse Rate 95 10/04/22 18:52 Respiratory Rate 16 10/04/22 18:52 Blood Pressure 110/69 10/04/22 18:52 Pulse Oximetry 98 10/04/22 18:52 Oxygen Delivery Room Air 10/04/22 18:52 Temperature 97.9 F 10/05/22 03:16 Pulse Rate 81 10/05/22 03:16 Respiratory Rate 14 10/05/22 03:16 Blood Pressure 143/62 H 10/05/22 03:16 Pulse Oximetry 100 10/05/22 03:16 Oxygen Delivery Room Air 10/04/22 18:52 MDM - Recheck/Abnormal Lab/Rx MDM Narrat
[2022-10-05] MEDS: ALBUMIN HUMAN 25% 12.5 GM/50ML 50 ML IVPB ×3 (06:01→18:39)
--- NOTE | 2022-10-05 08:56 | PM.IMHP ---
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 He stopped drinking in February of 2022. He had been drinking about 12 beers per day since his late teens. He is not a smoker and denied any other recreational substance use. He has had multiple paracenteses. He denied any change in his diet or non adherence to his medical regimen. He noted that since he last had a paracentesis on September 25 the fluid in his abdomen legs as gradually reaccumulated. At this point he cannot get shoes on. He is short of breath due to the fluid accumulation. He has no orthopnea or PND. He denied chest pain. Denied cough congestion fevers or chills or sweats. Denied change in bowels. Denied hematochezia or melena. Denied difficulty urinating. Denied hematuria. Denied any abnormal bleeding. Denied any rash or unusual joint pains or joint swelling. No focal weakness or numbness. Review of Systems Review of Systems: All systems reviewed & are unremarkable except as noted in HPI and below PMFSH Past Medical History Medical History Adenomatous colon polyp Ascites Cirrhosis, alcoholic History of alcohol abuse Leg edema Pancytopenia Positive colorectal cancer screening using Cologuard test Family History Family History Father Family history of malignant neoplasm of urinary bladder, Onset Age: 3 Other Family history of malignant neoplasm Social History Social History (Updated 10/05/22 @ 09:00 by Awais Ivy MD) Social History: Resides in his own home. 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 Quit drinking in February of 2022, was about 12 beers per day for many years. Smoking status: Never smoker Alcohol intake: former Drinks per week: 6 Substance use: never Lack of Transportation: No Lack of Food: Never True Current Housing: I Have Housing Concerned About Future Housing: No Difficulty Paying Gas/Electric Bills: No Difficulty Paying for Meds: No Currently Unemployed: No Education: High School Diploma/GED Difficulty w/ Childcare or Family Care: No Living arrangements: alone Occupation/Education: occupation Spiritual care concerns: No Meds Home Medications and Allergies Home Medications Medication Instructions Recorded Confirmed Type cholecalciferol (vitamin D3) 62.5 62.5 mcg PO DAILY 06/27/22 10/05/22 History mcg (2,500 unit) capsule ferrous sulfate 325 mg (65 mg 325 mg PO .Every Other Day 06/27/22 10/05/22 History iron) tablet magnesium oxide 400 mg PO BID 06/27/22 10/05/22 History vit B complex 100 combo no.2 100 1 tablet PO DAILY 06/27/22 10/05/22 History mg tablet,extended release (B-100 Complex ER) zinc sulfate 50 mg zinc (220 mg) 50 mg PO DAILY #30 caps 06/27/22 10/05/22 Rx capsule furosemide 20 mg tablet 60 mg PO QAM 1 month #90 tabs 09/26/22 10/05/22 Rx spironolactone 50 mg tablet 150 mg PO DAILY 1 month #90 tabs 09/26/22 10/05/22 Rx Allergies Allergy/AdvReac Type Severity Reaction Status Date / Time No Known Allergies Allergy Mild Verified 09/26/22 09:36 Vital Signs Vital Signs - 24 hr 10/04/22 18:52 10/04/22 22:48 10/04/22 22:41 Temperature 98.2 F Pulse Rate 95 81 82 Respiratory Rate 16 18 21 H Blood Pressure 110/69 145/64 H Pulse Oximetry 98 98 99 Oxygen Delivery Room Air 10/04/22 22:42 10/04/22 22:45 10/04/22 23:00 Temperature Pulse Rate 83 83 83 Respiratory Rate 11 L 10 L 14 Blood Pressure 145/64 H Pulse Oximetry 99 100 99 Oxygen Delivery 10/04/22 23:01 10/04/22 23:15 10/04/22 23:30 Temperature Pulse Rate 84 85 84 Respiratory Rate 12 24 H 13 Blood Pressure 129/72 Pulse O
[2022-10-05 09:49] LABS: Hematocrit 28.5 % (42.0-52.0); Hemoglobin 9.5 g/dL (14.0-18.0); Mean Corpuscular HGB Conc 33.3 g/dl (32-36); Mean Corpuscular Hemoglobin 28.7 pg (26-34); Mean Corpuscular Volume 86.1 fl (80-100); Mean Platelet Volume 8.6 fl (7.4-10.4); Platelet Count Result 52 k/mm3 (150-375); Red Blood Count 3.31 M/mm3 (4.6-6.20)
[2022-10-05 10:00] LABS: White Blood Count 1.8 K/mm3 (4.5-10.0)
[2022-10-05 10:02] LABS: Anion Gap 4 mmol/L (8-16); Blood Urea Nitrogen 21 mg/dL (9-20); Calcium 8.2 mg/dL (8.4-10.2); Carbon Dioxide 26 mmol/L (22-30); Chloride 95 mmol/L (98-107); Estimated CRCL calculation 69 ml/min; Estimated Glomerular Filt Rate 60; Glucose 85 mg/dL (65-110); Potassium 4.5 mmol/L (3.4-5.0); Sodium 125 mmol/L (137-145)
[2022-10-05] MEDS: FUROSEMIDE 20 MG TABLET 60 MG PO (12:33)
[2022-10-05] MEDS: VITAMIN B COMPLEX CAPSULE 1 CAP PO (12:33)
[2022-10-05] MEDS: CHOLECALCIFEROL 1,000 UNITS TABLET 2000 UNITS PO (12:33)
[2022-10-05] MEDS: MAGNESIUM OXIDE 400 MG TABLET PO ×2 (12:34→18:39)
[2022-10-05] MEDS: ZINC SULFATE 220 MG CAPSULE PO (12:34)
[2022-10-05] MEDS: SPIRONOLACTONE 50 MG TABLET 150 MG PO (12:34)
[2022-10-06] MEDS: ALBUMIN HUMAN 25% 12.5 GM/50ML 50 ML IVPB ×2 (00:12→05:33)
[2022-10-06 06:00] VITALS: BP 122/51; PULSE 74; RESP 13; TEMP 37.1; O2SAT 97
[2022-10-06 07:51] LABS: Creatinine Urine 125.7 mg/dL
[2022-10-06] MEDS: CHOLECALCIFEROL 1,000 UNITS TABLET 2000 UNITS PO (08:19)
[2022-10-06] MEDS: MAGNESIUM OXIDE 400 MG TABLET PO ×2 (08:19→16:37)
[2022-10-06] MEDS: ZINC SULFATE 220 MG CAPSULE PO (08:19)
[2022-10-06] MEDS: FUROSEMIDE 20 MG TABLET 60 MG PO (08:19)
[2022-10-06] MEDS: SPIRONOLACTONE 50 MG TABLET 150 MG PO (08:19)
[2022-10-06] MEDS: FERROUS SULFATE 325 MG TABLET DR BY MOUTH (08:20)
[2022-10-06] MEDS: VITAMIN B COMPLEX CAPSULE 1 CAP PO (08:20)
[2022-10-06 08:57] LABS: Hematocrit 27.2 % (42.0-52.0); Hemoglobin 9.1 g/dL (14.0-18.0); Immature Platelet Fraction Pct 1.7 % (0.9-11.2); Mean Corpuscular HGB Conc 33.5 g/dl (32-36); Mean Corpuscular Hemoglobin 28.9 pg (26-34); Mean Corpuscular Volume 86.3 fl (80-100); Mean Platelet Volume 9.4 fl (7.4-10.4); Platelet Count Result 50 k/mm3 (150-375); Red Blood Count 3.15 M/mm3 (4.6-6.20); Red Cell Distribution Width 15.9 % (11.5-14.5)
[2022-10-06 09:09] LABS: Anion Gap 3 mmol/L (8-16); Blood Urea Nitrogen 19 mg/dL (9-20); Carbon Dioxide 27 mmol/L (22-30); Chloride 96 mmol/L (98-107); Estimated CRCL calculation 69 ml/min; Estimated Glomerular Filt Rate 60; Glucose 89 mg/dL (65-110); Potassium 3.6 mmol/L (3.4-5.0); Sodium 126 mmol/L (137-145)
[2022-10-06 09:12] LABS: White Blood Count 1.4 K/mm3 (4.5-10.0)
--- NOTE | 2022-10-06 09:24 | PM.IMPN ---
Progress Note: A&P Assessment and Plan (1) Ascites: Qualifiers: Ascites type: due to alcoholic cirrhosis Qualified Code(s): K70.31 - Alcoholic cirrhosis of liver with ascites Code(s): R18.8 - Other ascites Status: Acute Assessment and Plan: Adherent to medical regimen and diet per history per hx Continue furosemide and spironolactone Continue low-salt diet Added fluid restriction due to hyponatremia 10/05 ultrasound-guided paracentesis Consider referral for [facility] consulted 10/05 10/06 repeat u/s-guided paracentesis ordered (2) Cirrhosis, alcoholic: Qualifiers: Ascites presence: with ascites Qualified Code(s): K70.31 - Alcoholic cirrhosis of liver with ascites Code(s): K70.30 - Alcoholic cirrhosis of liver without ascites Status: Acute Assessment and Plan: Abstaining from alcohol (3) Leg edema: Code(s): R60.0 - Localized edema Status: Acute Assessment and Plan: Due to cirrhosis with ascites (4) Acute hyponatremia: Code(s): E87.1 - Hypo-osmolality and hyponatremia Status: Acute Assessment and Plan: Likely due to volume overload from his cirrhosis with ascites Restrict free water intake 10/05 125, 10/06 126 (5) Pancytopenia: Code(s): D61.818 - Other pancytopenia Status: Acute Assessment and Plan: Chronic 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 Normal effort. HEART: NL S1/S2, regular, no murmur ABDOMEN: BS+, protuberant but soft and nontender. No palpable mass or organomegaly. EXTREMITIES: 4+ pitting edema bilateral lower extremities to knees. NEUROLOGIC: CN intact and symmetric to inspection. MUSCULOSKELETAL: Tone and strength symmetric. PSYCH: Alert. Oriented to person, place, and time. Objective Data Vital Signs Vital Signs: Vital Signs - 24 hr 10/05/22 12:39 10/05/22 14:00 10/05/22 21:34 Temperature 98.0 F 98.3 F Pulse Rate 73 90 81 Respiratory Rate 14 14 13 Blood Pressure 118/53 L 134/64 126/55 L Pulse Oximetry 100 99 99 10/06/22 06:00 Temperature 98.7 F Pulse Rate 74 Respiratory Rate 13 Blood Pressure 122/51 L Pulse Oximetry 97 Intake/Output Intake/Output: Intake & Output 10/03/22 10/04/22 10/05/22 10/06/22 23:59 23:59 23:59 23:59 Intake Total 390 450 Output Total 5000 Balance -4610 450 Meds/Results Medications: Active Medications Generic Name Dose Route Start Last Admin Trade Name Freq PRN Reason Stop Dose Admin Al Hydrox/Mg Hydrox/Simethicone 30 ml 10/05/22 05:05 Mag Hydrox/Al Hydrox/Simeth 30 Ml Udc PO Q6H PRN Indigestion Ferrous Sulfate 325 mg 10/06/22 08:00 10/06/22 08:20 Ferrous Sulfate [address] BY MOUTH 325 mg Q48H WENDY Administration Furosemide 60 mg 10/05/22 09:00 10/06/22 08:19 Furosemide 20 Mg Tablet PO 60 mg QAM WENDY Administration Magnesium Oxide 400 mg 10/05/22 09:00 10/06/22 08:19 Magnesium Oxide 400 Mg Tablet PO 400 mg BID WENDY Administration Polyethylene Glycol 17 gm 10/05/22 05:05 Polyethylene Glycol 3350 17 Gm Powd.Pack PO QAM PRN Constipation Spironolactone 150 mg 10/05/22 09:00 10/06/22 08:19 Spironolactone 50 Mg Tablet PO 150 mg DAILY WENDY Administration Vitamin B Complex 1 cap 10/05/22 09:00 10/06/22 08:20 Vitamin B Complex Capsule PO 1 cap QAM WENDY Administration Vitamin D 2,000 units 10/05/22 09:00 10/06/22 08:19 Cholecalciferol 1,000 Units Tablet PO 2,000 units DAILY WENDY Administration Zinc Sulfate 220 mg 0
--- NOTE | 2022-10-06 11:52 | WPDGICN ---
Assessment and Plan Assessment and plan (1) Ascites: Qualifiers: Ascites type: due to alcoholic cirrhosis Qualified Code(s): K70.31 - Alcoholic cirrhosis of liver with ascites Code(s): R18.8 - Other ascites Status: Acute Assessment and Plan: recurrent ascites will order another paracentesis tomorrow, also we tried to increase frequency of outpatient paracentesis he will see hepatology nov 2022 at [facility], discussion about tips, liver transplant evaluation, etc continue with lasix and aldactone 2g na diet (2) Cirrhosis, alcoholic: Qualifiers: Ascites presence: with ascites Qualified Code(s): K70.31 - Alcoholic cirrhosis of liver with ascites Code(s): K70.30 - Alcoholic cirrhosis of liver without ascites Status: Acute Assessment and Plan: abstinent since February work up for other chronic liver conditions negative (3) Pancytopenia: Code(s): D61.818 - Other pancytopenia Status: Acute Assessment and Plan: monitor (4) History of alcohol abuse: Code(s): F10.11 - Alcohol abuse, in remission Status: Acute (5) Acute hyponatremia: Code(s): E87.1 - Hypo-osmolality and hyponatremia Status: Acute Assessment and Plan: monitor GI Consult Note Consult date/time: 10/06/22 11:52 Reason for consult: cirrhosis, recurrent ascites HPI: Burton Rubi is a 67 year old male who is my clinic patient. I saw him initially when?had + cologuard and came for colonoscopy, had several TA polyps removed 06/2021 but since diagnosis of cirrhosis February 2022, had ultrasound that showed cirrhosis and noted increased abdominal girth with leg edema. He was a heavy drinker (at least 6 pack daily most of his adult life- quit when he was told that has cirrhosis Feb 2022), blood work also showed pancytopenia. He is using 100mg aldactone and 40 mg lasix but has required more frequent paracentesis, normally will get 5 liters but it is not enough and he will have to come back for more. I just saw him in the office and plan was to increase frequency of paracentesis to every 2-3 weeks. In the meantime he will have his first appointment with occupational therapy asst at [facility] rescheduled until 11/2022. He is back to the hospital because more abdominal distension and leg edema, 5 liters removed yesterday. Feeling better but wonders if more can be removed tomorrow. Review of Systems Constitutional: Constitutional: Reports fatigue Eyes: Eyes: Denies blurry vision ENT: Reports Normal hearing present Cardiovascular: Cardiovascular: Reports leg edema Respiratory: Respiratory: Denies cough Gastrointestinal: Gastrointestinal: Reports bloating Genitourinary: Genitourinary: Denies dysuria Musculoskeletal: Musculoskeletal: Denies myalgias Integumentary/Breasts: Skin/Breast: Denies rash Neurologic: Denies confusion Psychiatric: Psychiatric: Denies behavioral changes [facility] Past Medical History Medical History Adenomatous colon polyp Ascites Cirrhosis, alcoholic History of alcohol abuse Leg edema Pancytopenia Positive colorectal cancer screening using Cologuard test Family History Family History Father Family history of malignant neoplasm of urinary bladder, Onset Age: 3 Other Family history of malignant neoplasm Social History Social History (Updated 10/05/22 @ 09:00 by Awais Ivy MD) Social History: Resides in his own home. 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 Quit drinking in February of 2022, was about 12 beers per day for many years. Smoking status: Never smoker Alcohol intake: former Drinks per week: 6 Substance use: never Lack of Transportation: No Lack of Food: Never True Current Housing: I Have Housing Concerned About Future Housing:
[2022-10-06 13:49] LABS: Appearance Peritoneal Fluid Clear (Clear); Color Peritoneal Fluid Yellow (Colorless); Source Peritoneal Fluid Peritoneal Fluid
[2022-10-06 13:50] LABS: Lymphocytes Peritoneal Fluid 46 %; Macrophages Peritoneal Fluid 27 %; Monocytes Peritoneal Fluid 11 %; Neutrophils Peritoneal Fluid 1 % (0-25); Nucleated Cells Peritoneal Flu 118 /uL (0-500); RBC Peritoneal Fluid 2000 /uL (0-100000)
[2022-10-06 13:51] LABS: Mesothelial Cells Peritoneal Fluid 15 %
[2022-10-06 14:00] VITALS: BP 124/54; PULSE 78; RESP 16; TEMP 37.1; O2SAT 96
[2022-10-06 20:00] VITALS: PULSE 85; RESP 16; O2SAT 96
[2022-10-06 22:00] VITALS: BP 115/54; PULSE 85; RESP 16; TEMP 36.9; O2SAT 96
[2022-10-07 03:55] LABS: Urea Random Urine 782 MG/DL
[2022-10-07 05:00] VITALS: BP 114/65; PULSE 81; RESP 18; TEMP 36.4; O2SAT 98
[2022-10-07 07:29] LABS: Hematocrit 26.9 % (42.0-52.0); Immature Platelet Fraction Pct 2.3 % (0.9-11.2); Mean Corpuscular HGB Conc 33.5 g/dl (32-36); Mean Corpuscular Volume 86.8 fl (80-100); Mean Platelet Volume 9.4 fl (7.4-10.4); Platelet Count Result 47 k/mm3 (150-375); Red Cell Distribution Width 15.9 % (11.5-14.5)
[2022-10-07 07:34] LABS: Anion Gap 1 mmol/L (8-16); Blood Urea Nitrogen 18 mg/dL (9-20); Calcium 7.8 mg/dL (8.4-10.2); Carbon Dioxide 30 mmol/L (22-30); Chloride 98 mmol/L (98-107); Estimated CRCL calculation 65 ml/min; Estimated Glomerular Filt Rate 60; Glucose 88 mg/dL (65-110); Potassium 4.2 mmol/L (3.4-5.0); Sodium 129 mmol/L (137-145)
[2022-10-07 07:55] LABS: White Blood Count 1.6 K/mm3 (4.5-10.0)
[2022-10-07 08:30] VITALS: PULSE 72; O2SAT 95
[2022-10-07] MEDS: MAGNESIUM OXIDE 400 MG TABLET PO ×2 (08:40→16:54)
[2022-10-07] MEDS: VITAMIN B COMPLEX CAPSULE 1 CAP PO (08:40)
[2022-10-07] MEDS: FUROSEMIDE 20 MG TABLET 60 MG PO (08:40)
[2022-10-07] MEDS: ZINC SULFATE 220 MG CAPSULE PO (08:40)
[2022-10-07] MEDS: SPIRONOLACTONE 50 MG TABLET 150 MG PO (08:40)
--- NOTE | 2022-10-07 08:45 | P.PNIM_ITS ---
Progress Note: A&P Assessment and Plan (1) Ascites: Qualifiers: Ascites type: due to alcoholic cirrhosis Qualified Code(s): K70.31 - Alcoholic cirrhosis of liver with ascites Code(s): R18.8 - Other ascites Status: Acute Assessment and Plan: * Adherent to medical regimen and diet per history per hx * Continue furosemide and spironolactone * Continue low-salt diet * Added fluid restriction due to hyponatremia * 10/05 ultrasound-guided paracentesis removing 5L * Consider referral for TIPS * GI consulted 10/05 * 10/06 repeat u/s-guided paracentesis removed 5L * Plan for another paracentesis in the am. (2) Cirrhosis, alcoholic: Qualifiers: Ascites presence: with ascites Qualified Code(s): K70.31 - Alcoholic cirrhosis of liver with ascites Code(s): K70.30 - Alcoholic cirrhosis of liver without ascites Status: Acute Assessment and Plan: * Abstaining from alcohol * Abstinent since February of 2022 * Cause of the reaccumulation of the ascites * Stable (3) Leg edema: Code(s): R60.0 - Localized edema Status: Acute Assessment and Plan: * Due to cirrhosis with ascites * Continue to trend edema * Fluid restriction * Related to cirrhosis (4) Acute hyponatremia: Code(s): E87.1 - Hypo-osmolality and hyponatremia Status: Acute Assessment and Plan: * Likely due to volume overload from his cirrhosis with ascites * Restrict free water intake * Low sodium diet * 10/05 125, 10/06 126, 10/07 129 * Most likely chronic findings (5) Pancytopenia: Code(s): D61.818 - Other pancytopenia Status: Acute Assessment and Plan: * Chronic * 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 He was concerned about his abdomen still being relatively distended. He is also concerned about his leg swelling. He is hopeful to get one last paracentesis prior to discharge. Currently he does not have any chest pain, shortness of breath, nausea, vomiting, dirrhea or contipation. Spoke with Dr. Zazueta multiple times throughout the day and it was decided that the patient should be able to discharge home tomorrow after getting a paracentesis in the am. 10/05/22? 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 He stopped drinking in February of 2022.? He had been drinking about 12 beers per day since his late teens.? He is not a smoker and denied any other recreational substance use.? He has had multiple paracenteses.? He denied any change in his diet or non adherence to his medical regimen.? He noted that since he last had a paracentesis on September 25 the fluid in his abdomen legs as gradually reaccumulated.? At this point he cannot get shoes on.? He is short of breath due to the fluid accumulation.? He has no orthopnea or PND. He denied chest pain.? Denied cough congestion fevers or chills or sweats.? Denied change in bowels.? Denied hematochezia or melena.? Denied difficulty urinating.? Denied hematuria.? Denied any abnormal bleeding.? Denied any rash or unusual joint pains or joint swelling.? No
--- NOTE | 2022-10-07 08:45 | PM.IMPN ---
Progress Note: A&P Assessment and Plan (1) Ascites: Qualifiers: Ascites type: due to alcoholic cirrhosis Qualified Code(s): K70.31 - Alcoholic cirrhosis of liver with ascites Code(s): R18.8 - Other ascites Status: Acute Assessment and Plan: Adherent to medical regimen and diet per history per hx Continue furosemide and spironolactone Continue low-salt diet Added fluid restriction due to hyponatremia 10/05 ultrasound-guided paracentesis removing 5L Consider referral for TIPS GI consulted 10/05 10/06 repeat u/s-guided paracentesis removed 5L Plan for another paracentesis in the am. (2) Cirrhosis, alcoholic: Qualifiers: Ascites presence: with ascites Qualified Code(s): K70.31 - Alcoholic cirrhosis of liver with ascites Code(s): K70.30 - Alcoholic cirrhosis of liver without ascites Status: Acute Assessment and Plan: Abstaining from alcohol Abstinent since February of 2022 Cause of the reaccumulation of the ascites Stable (3) Leg edema: Code(s): R60.0 - Localized edema Status: Acute Assessment and Plan: Due to cirrhosis with ascites Continue to trend edema Fluid restriction Related to cirrhosis (4) Acute hyponatremia: Code(s): E87.1 - Hypo-osmolality and hyponatremia Status: Acute Assessment and Plan: Likely due to volume overload from his cirrhosis with ascites Restrict free water intake Low sodium diet 10/05 125, 10/06 126, 10/07 129 Most likely chronic findings (5) Pancytopenia: Code(s): D61.818 - Other pancytopenia Status: Acute Assessment and Plan: Chronic 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 He was concerned about his abdomen still being relatively distended. He is also concerned about his leg swelling. He is hopeful to get one last paracentesis prior to discharge. Currently he does not have any chest pain, shortness of breath, nausea, vomiting, dirrhea or contipation. Spoke with Dr. Zazueta multiple times throughout the day and it was decided that the patient should be able to discharge home tomorrow after getting a paracentesis in the am. 10/05/22? 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 He stopped drinking in February of 2022.? He had been drinking about 12 beers per day since his late teens.? He is not a smoker and denied any other recreational substance use.? He has had multiple paracenteses.? He denied any change in his diet or non adherence to his medical regimen.? He noted that since he last had a paracentesis on September 25 the fluid in his abdomen legs as gradually reaccumulated.? At this point he cannot get shoes on.? He is short of breath due to the fluid accumulation.? He has no orthopnea or PND. He denied chest pain.? Denied cough congestion fevers or chills or sweats.? Denied change in bowels.? Denied hematochezia or melena.? Denied difficulty urinating.? Denied hematuria.? Denied any abnormal bleeding.? Denied any rash or unusual joint pains or joint swelling.? No focal weakness or numbness. Review of Systems Review of Systems: All systems reviewed & are unremarkable except as noted in HPI and below Exam Narrative: General: well-nourished, ill-appearing 67-year-old male, sitting up in bed, comfortable, NARD Neuro: awake, alert and oriented x4, speech clear, no focal neuro deficits noted HEENMT: normocephalic, atraumatic, EOMI, sclerae anicteric, moist oral mucosa Respiratory: Clear to auscultation bilaterally without crackles, rhonchi or wheezes, nonlabored breathing
[2022-10-07] MEDS: CHOLECALCIFEROL 1,000 UNITS TABLET 2000 UNITS PO (08:47)
--- NOTE | 2022-10-07 13:00 | WPDGIPROGNO ---
Progress Note: A&P Assessment and Plan (1) Ascites: Qualifiers: Ascites type: due to alcoholic cirrhosis Qualified Code(s): K70.31 - Alcoholic cirrhosis of liver with ascites Code(s): R18.8 - Other ascites Status: Acute Assessment and Plan: he will need outpatient large volume paracentesis as needed (probably every 2-3 weeks) will see if he can get another paracentesis, creatinine has been stable at 1.2 continue with 2g na diet and lasix/aldactone 60/150mg daily- will consider to increase dose he is going to see hepatology at [facility] but not until 11/2022, probably he will be a candidate to get tips (2) Cirrhosis, alcoholic: Qualifiers: Ascites presence: with ascites Qualified Code(s): K70.31 - Alcoholic cirrhosis of liver with ascites Code(s): K70.30 - Alcoholic cirrhosis of liver without ascites Status: Acute Assessment and Plan: nutrition support he is abstinent (3) Pancytopenia: Code(s): D61.818 - Other pancytopenia Status: Acute Assessment and Plan: stable (4) Leg edema: Code(s): R60.0 - Localized edema Status: Acute (5) Chronic hyponatremia: Code(s): E87.1 - Hypo-osmolality and hyponatremia Status: Acute Subjective Date/time seen: 10/07/22 13:00 Interval history: overall better but still distended abdomen, he wonders if could have another paracentesis before he leaves the hospital Review of Systems Review of Systems: All systems reviewed & are unremarkable except as noted in HPI and below Exam Const: Other: chronically ill appearing HENMT: Face/Nose/Sinus: Normal nares present Eyes: Sclera: sclerae normal Neck: Neck: supple Resp: Auscultation: clear to auscultation bilaterally Cardio: Rate: regular rate GI: Inspection: distended GI Palp: Yes Soft to palpation and No Guarding due to palpation present (GI) Other: + fluid wave Skin: General skin exam: normal color Neuro: Speech: normal speech Motor exam (neuro): 5/5 motor strength present throughout Extrem: General: pedal edema Psych: Mental Status: mental status grossly normal Objective Data Vital Signs Vital Signs: Vital Signs - 24 hr 10/06/22 14:00 10/06/22 22:00 10/06/22 20:00 Temperature 98.8 F 98.4 F Pulse Rate 78 85 85 Respiratory Rate 16 16 16 Blood Pressure 124/54 L 115/54 L Pulse Oximetry 96 96 96 Oxygen Delivery Room Air 10/07/22 05:00 10/07/22 08:30 Temperature 97.6 F Pulse Rate 81 72 Respiratory Rate 18 Blood Pressure 114/65 Pulse Oximetry 98 95 Oxygen Delivery Room Air Intake/Output Intake/Output: Intake & Output 10/04/22 10/05/22 10/06/22 10/07/22 23:59 23:59 23:59 23:59 Intake Total 390 906 240 Output Total 5000 5808 100 [facility] -4650 -4923 140 Meds/Results Medications: Active Medications Generic Name Dose Route Start Last Admin Trade Name Freq PRN Reason Stop Dose Admin Al Hydrox/Mg Hydrox/Simethicone 30 ml 10/05/22 05:05 Mag Hydrox/Al Hydrox/Simeth 30 Ml Udc PO Q6H PRN Indigestion Ferrous Sulfate 325 mg 10/06/22 08:00 10/06/22 08:20 Ferrous Sulfate [address] BY MOUTH 325 mg Q48H WENDY Administration Furosemide 60 mg 10/05/22 09:00 10/07/22 08:40 Furosemide 20 Mg Tablet PO 60 mg QAM WENDY Administration Magnesium Oxide 400 mg 10/05/22 09:00 10/07/22 08:40 Magnesium Oxide 400 Mg Tablet PO 400 mg BID WENDY Administration Polyethylene Glycol 17 gm 10/05/22 05:05 Polyethylene Glycol 3350 17 Gm Powd.Pack PO QAM PRN Constipation Spironolactone 150 mg 10/05/22 09:00 10/07/22 08:40 Spironolactone 50 Mg Tablet PO 150 mg DAILY WENDY Administration Vitamin B Complex 1 cap 10/05/22 09:00 10/07/22 08:40 Vitamin B Complex Capsule PO 1 cap QAM WENDY Administration Vitamin D 2,000 units 10/05/22 09:00 10/07/22 08:47 Cholecalciferol 1,000 Units Tablet PO 2,000 units
[2022-10-07 14:20] VITALS: BP 113/52; PULSE 72; RESP 12; TEMP 36.6; O2SAT 100
--- NOTE | 2022-10-07 14:30 | PCCCNOTE ---
On 10/07/22, the student, [Marianne Guallpa], provided care and completed [facility] documentation on this patient. I have reviewed the student's documentation and agree with the findings.
--- NOTE | 2022-10-07 16:02 | P.DS_ITS ---
DS: Admitting Diagnosis Discharge Date 10/07/22 Admitting Diagnosis Cirrhosis of the liver, uncontrolled fluid overload and ascities DS: Discharge Diagnosis Discharge Diagnosis (1) Ascites: Qualifiers: Ascites type: due to alcoholic cirrhosis Qualified Code(s): K70.31 - Alcoholic cirrhosis of liver with ascites Code(s): R18.8 - Other ascites Status: Acute Assessment and Plan: * Adherent to medical regimen and diet per history per hx * Continue furosemide and spironolactone * Continue low-salt diet * Added fluid restriction due to hyponatremia * 10/05 ultrasound-guided paracentesis removing 5L * Consider referral for TIPS * GI consulted 10/05 * 10/06 repeat u/s-guided paracentesis removed 5L (2) Cirrhosis, alcoholic: Qualifiers: Ascites presence: with ascites Qualified Code(s): K70.31 - Alcoholic cirrhosis of liver with ascites Code(s): K70.30 - Alcoholic cirrhosis of liver without ascites Status: Acute Assessment and Plan: * Abstaining from alcohol * Abstinent since February of 2022 * Cause of the reaccumulation of the ascites * Stable (3) Leg edema: Code(s): R60.0 - Localized edema Status: Acute Assessment and Plan: * Due to cirrhosis with ascites * Continue to trend edema * Fluid restriction * Related to cirrhosis (4) Acute hyponatremia: Code(s): E87.1 - Hypo-osmolality and hyponatremia Status: Acute Assessment and Plan: * Likely due to volume overload from his cirrhosis with ascites * Restrict free water intake * Low sodium diet * 10/05 125, 10/06 126, 10/07 129 * Most likely chronic findings (5) Pancytopenia: Code(s): D61.818 - Other pancytopenia Status: Acute Assessment and Plan: * Chronic * 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 Patient stated that he had a paracentesis done on September 25 however his legs and his abdomen have been filling up with fluid fast. Patient did have 2 paracentesis is since admission which did draw off 5 L at a time. There is also another 1 ordered prior to discharge. Currently patient is doing okay he currently denies any chest pain, shortness a breath, nausea, vomiting, diarrhea constipation. He did state that he still feels like his belly is full. He also stated he has not had a bowel movement however he does feel okay and is ready to go home. GI was consulted is okay with him DC at this time. Patient will need is paracentesis more often. Currently patient is stable for discharge and will need to follow with GI. Status at Discharge Functional status at discharge: independent ambulation Overall status at discharge: patient is progressing back to baseline Time Spent with Patient Time attestation: Total time spent providing and/or coordinating discharge services: 36 minutes Time spent: Greater than 30 minutes Specific discharge activities: Diagnostic testing, chart review, developing a treatment plan, education, care coordination documentation, physical exam, result review Exam Narrative: General: well-nourished, ill-appearing 67
--- NOTE | 2022-10-07 16:02 | PM.DS ---
DS: Admitting Diagnosis Discharge Date 10/07/22 Admitting Diagnosis Cirrhosis of the liver, uncontrolled fluid overload and ascities DS: Discharge Diagnosis Discharge Diagnosis (1) Ascites: Qualifiers: Ascites type: due to alcoholic cirrhosis Qualified Code(s): K70.31 - Alcoholic cirrhosis of liver with ascites Code(s): R18.8 - Other ascites Status: Acute Assessment and Plan: Adherent to medical regimen and diet per history per hx Continue furosemide and spironolactone Continue low-salt diet Added fluid restriction due to hyponatremia 10/05 ultrasound-guided paracentesis removing 5L Consider referral for TIPS GI consulted 10/05 10/06 repeat u/s-guided paracentesis removed 5L (2) Cirrhosis, alcoholic: Qualifiers: Ascites presence: with ascites Qualified Code(s): K70.31 - Alcoholic cirrhosis of liver with ascites Code(s): K70.30 - Alcoholic cirrhosis of liver without ascites Status: Acute Assessment and Plan: Abstaining from alcohol Abstinent since February of 2022 Cause of the reaccumulation of the ascites Stable (3) Leg edema: Code(s): R60.0 - Localized edema Status: Acute Assessment and Plan: Due to cirrhosis with ascites Continue to trend edema Fluid restriction Related to cirrhosis (4) Acute hyponatremia: Code(s): E87.1 - Hypo-osmolality and hyponatremia Status: Acute Assessment and Plan: Likely due to volume overload from his cirrhosis with ascites Restrict free water intake Low sodium diet 10/05 125, 10/06 126, 10/07 129 Most likely chronic findings (5) Pancytopenia: Code(s): D61.818 - Other pancytopenia Status: Acute Assessment and Plan: Chronic 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 Patient stated that he had a paracentesis done on September 25 however his legs and his abdomen have been filling up with fluid fast. Patient did have 2 paracentesis is since admission which did draw off 5 L at a time. There is also another 1 ordered prior to discharge. Currently patient is doing okay he currently denies any chest pain, shortness a breath, nausea, vomiting, diarrhea constipation. He did state that he still feels like his belly is full. He also stated he has not had a bowel movement however he does feel okay and is ready to go home. GI was consulted is okay with him DC at this time. Patient will need is paracentesis more often. Currently patient is stable for discharge and will need to follow with GI. Status at Discharge Functional status at discharge: independent ambulation Overall status at discharge: patient is progressing back to baseline Time Spent with Patient Time attestation: Total time spent providing and/or coordinating discharge services: 36 minutes Time spent: Greater than 30 minutes Specific discharge activities: Diagnostic testing, chart review, developing a treatment plan, education, care coordination documentation, physical exam, result review Exam Narrative: General: well-nourished, ill-appearing 67-year-old male, sitting up in bed, comfortable, NARD Neuro: awake, alert and oriented x4, speech clear, no focal neuro deficits noted HEENMT: normocephalic, atraumatic, EOMI, sclerae anicteric, moist oral mucosa Respiratory: Clear to auscultation bilaterally without crackles, rhonchi or wheezes, nonlabored breathing Cardio: regular rate, regular rhythm with S1-S2 Abdomen: very distended, normoactive bowel sounds, soft, nontender to palpation Extremities: 3-4+ pitting edema bilateral lower extremities, no erythema, or tender
[2022-10-07 21:40] VITALS: BP 114/48; PULSE 78; RESP 14; TEMP 36.7; O2SAT 100
[2022-10-08 04:47] VITALS: BP 117/48; PULSE 74; RESP 14; TEMP 36.5; O2SAT 99
[2022-10-08 06:36] LABS: Potassium 4.4 mmol/L (3.4-5.0)
[2022-10-08] MEDS: CHOLECALCIFEROL 1,000 UNITS TABLET 2000 UNITS PO (08:16)
[2022-10-08] MEDS: SPIRONOLACTONE 50 MG TABLET 150 MG PO (08:16)
[2022-10-08] MEDS: VITAMIN B COMPLEX CAPSULE 1 CAP PO (08:16)
[2022-10-08] MEDS: MAGNESIUM OXIDE 400 MG TABLET PO (08:17)
[2022-10-08] MEDS: FUROSEMIDE 20 MG TABLET 60 MG PO (08:17)
[2022-10-08] MEDS: ZINC SULFATE 220 MG CAPSULE PO (08:17)
[2022-10-08] MEDS: FERROUS SULFATE 325 MG TABLET DR BY MOUTH (08:17)
--- NOTE | 2022-10-08 11:33 | WPDGIPROGNO ---
Progress Note: A&P Assessment and Plan (1) Ascites: Qualifiers: Ascites type: due to alcoholic cirrhosis Qualified Code(s): K70.31 - Alcoholic cirrhosis of liver with ascites Code(s): R18.8 - Other ascites Status: Acute Assessment and Plan: he will need outpatient large volume paracentesis as needed (probably every 2-3 weeks)- will set up with radiology continue with 2g na diet and lasix/aldactone 60/150mg daily- will consider to increase dose, follow-up office in 3-4 weeks he is going to see hepatology at [facility] but not until 11/2022, probably he will be a candidate to get tips (2) Cirrhosis, alcoholic: Qualifiers: Ascites presence: with ascites Qualified Code(s): K70.31 - Alcoholic cirrhosis of liver with ascites Code(s): K70.30 - Alcoholic cirrhosis of liver without ascites Status: Acute Assessment and Plan: nutrition support he is abstinent (3) Pancytopenia: Code(s): D61.818 - Other pancytopenia Status: Acute Assessment and Plan: stable (4) Leg edema: Code(s): R60.0 - Localized edema Status: Acute (5) Chronic hyponatremia: Code(s): E87.1 - Hypo-osmolality and hyponatremia Status: Acute Subjective Date/time seen: 10/08/22 11:33 Interval history: no changes Review of Systems Review of Systems: All systems reviewed & are unremarkable except as noted in HPI and below Exam Const: Other: chronically ill appearing HENMT: Face/Nose/Sinus: Normal nares present Eyes: Sclera: sclerae normal Neck: Neck: supple Resp: Auscultation: clear to auscultation bilaterally Cardio: Rate: regular rate GI: Inspection: distended GI Palp: Yes Soft to palpation and No Guarding due to palpation present (GI) Other: + fluid wave Skin: General skin exam: normal color Neuro: Speech: normal speech Motor exam (neuro): 5/5 motor strength present throughout Extrem: General: pedal edema Psych: Mental Status: mental status grossly normal Objective Data Vital Signs Vital Signs: Vital Signs - 24 hr 10/07/22 14:20 10/07/22 21:40 10/07/22 20:00 Temperature 97.8 F 98.1 F Pulse Rate 72 78 Respiratory Rate 12 14 Blood Pressure 113/52 L 114/48 L Pulse Oximetry 100 100 Oxygen Delivery Room Air 10/08/22 04:47 Temperature 97.7 F Pulse Rate 74 Respiratory Rate 14 Blood Pressure 117/48 L Pulse Oximetry 99 Oxygen Delivery Intake/Output Intake/Output: Intake & Output 10/05/22 10/06/22 10/07/22 10/08/22 23:59 23:59 23:59 23:59 Intake Total 390 906 940 0 Output Total 5000 0827 200 [id number] [phone] Meds/Results Medications: Active Medications Generic Name Dose Route Start Last Admin Trade Name Freq PRN Reason Stop Dose Admin Al Hydrox/Mg Hydrox/Simethicone 30 ml 10/05/22 05:05 Mag Hydrox/Al Hydrox/Simeth 30 Ml Udc PO Q6H PRN Indigestion Ferrous Sulfate 325 mg 10/06/22 08:00 10/08/22 08:17 Ferrous Sulfate [address] BY MOUTH 325 mg Q48H WENDY Administration Furosemide 60 mg 10/05/22 09:00 10/08/22 08:17 Furosemide 20 Mg Tablet PO 60 mg QAM WENDY Administration Magnesium Oxide 400 mg 10/05/22 09:00 10/08/22 08:17 Magnesium Oxide 400 Mg Tablet PO 400 mg BID WENDY Administration Polyethylene Glycol 17 gm 10/05/22 05:05 Polyethylene Glycol 3350 17 Gm Powd.Pack PO QAM PRN Constipation Spironolactone 150 mg 10/05/22 09:00 10/08/22 08:16 Spironolactone 50 Mg Tablet PO 150 mg DAILY WENDY Administration Vitamin B Complex 1 cap 10/05/22 09:00 10/08/22 08:16 Vitamin B Complex Capsule PO 1 cap QAM WENDY Administration Vitamin D 2,000 units 10/05/22 09:00 10/08/22 08:16 Cholecalciferol 1,000 Units Tablet PO 2,000 units DAILY WENDY Administration Zinc Sulfate 220 mg 10/05/22 09:00 10/08/22 08:17 Zinc Sulfate 220 Mg Capsule PO 220 mg DAILY WENDY Administration
--- NOTE | 2022-10-08 13:14 | PM.DS ---
DS: Admitting Diagnosis Discharge Date 10/08/22 Admitting Diagnosis Cirrhosis of the liver, uncontrolled fluid overload and ascites DS: Discharge Diagnosis Discharge Diagnosis (1) Chronic hyponatremia: Code(s): E87.1 - Hypo-osmolality and hyponatremia Status: Acute (2) Leg edema: Code(s): R60.0 - Localized edema Status: Acute (3) History of alcohol abuse: Code(s): F10.11 - Alcohol abuse, in remission Status: Acute (4) Ascites: Qualifiers: Ascites type: due to alcoholic cirrhosis Qualified Code(s): K70.31 - Alcoholic cirrhosis of liver with ascites Code(s): R18.8 - Other ascites Status: Acute (5) Cirrhosis, alcoholic: Qualifiers: Ascites presence: with ascites Qualified Code(s): K70.31 - Alcoholic cirrhosis of liver with ascites Code(s): K70.30 - Alcoholic cirrhosis of liver without ascites Status: Acute DS: Summary Hospital Course Hospital Course: 67 years -old male with a past medical history cirrhosis, iron deficiency anemia, pancytopenia presented to the ED with complaints of fluid overload.? Patient stated that he had a paracentesis done on September 25 however his legs and his abdomen have been filling up with fluid fast.? Patient did have 3 paracentesis is since admission .? Currently patient is doing okay he currently denies any chest pain, shortness a breath, nausea, vomiting, diarrhea constipation. GI was consulted is okay with him DC at this time.? Patient will need is paracentesis more often along with frequent outpatient paracentesis.? Currently patient is stable for discharge and will need to follow with GI. Status at Discharge Overall status at discharge: patient is progressing back to baseline Time Spent with Patient Time attestation: Total time spent providing and/or coordinating discharge services: Time spent: Greater than 30 minutes Exam Narrative: General: well-nourished, ill-appearing 67-year-old male, sitting up in bed, comfortable, NARD Neuro: awake, alert and oriented x4, speech clear, no focal neuro deficits noted HEENMT: normocephalic, atraumatic, EOMI, sclerae anicteric, moist oral mucosa Respiratory: Clear to auscultation bilaterally without crackles, rhonchi or wheezes, nonlabored breathing Cardio: regular rate, regular rhythm with S1-S2 Abdomen: very distended, normoactive bowel sounds, soft, nontender to palpation Extremities: 3-4+ pitting edema bilateral lower extremities, no erythema, or tenderness to palpation, DP pulses 2+ bilaterally Skin: no rashes or lesions, warm and dry Psych: appropriate mood and affect, judgment and insight intact DS: Data Data Completed and Pending Labs on day of discharge: Labs from last 24 hours 10/08/22 06:02 Potassium 4.4 Discharge Plan Discharge Attending physician on discharge: Brigitte Perez Consulting providers: Maurice Coleman; Kori Ortega Discharging Clinician: Brigitte Perez Anticipated Discharge Date/Time: 10/08/22 16:00 Patient Disposition: Home, Self-Care Activity: may shower, unlimited and as tolerated Diet: low sodium and other - see discharge instructions Discharge Instructions: Take medications as prescribed Maintain a cardiac diet, 2 g sodium, do not over hydrate Remain active Monitor urine output follow up with GI call to make an appointment Continue with fluid restriction Daily weights, if you gain more than 3 lb within 1 day or 5 lb in 1 week notify your primary care provider If you develop chest pain, shortness breath, fever greater than 101, nausea, or vomiting notify a clinician or come to the emergency department Follow-up with primary care provider within 1-2 weeks Thank you for [facility] for your healthcare needs Patient Instructions: Antibiotic Form Stand Alone Forms: General Discharge Information Follow-up/Referrals: Ernie Magaña MD [Primary Care Provider] -
--- NOTE | 2022-10-08 15:59 | PCCCNOTE ---
On 10/08/22, the student, [Marianne Guallpa], provided care and completed [facility] documentation on this patient. I have reviewed the student's documentation and agree with the findings.
[2022-10-10 20:25] LABS: Glucose Peritoneal Fluid 108 mg/dL; LDH Peritoneal Fluid 38 U/L (<63); Total Protein Peritoneal Fluid <3.0 g/dL
[2022-10-11 11:46] LABS: Amylase Peritoneal Fluid 67 U/L
[2022-10-11 23:12] LABS: Albumin Peritoneal Fluid 0.7 g/dL
== END 2022-10-08 16:00 | disposition home or self-care (01) | DRG 433 ==
LOC: ANHED 10-05 00:04 → ANH3MEDSUR 10-05 02:48
PROVIDERS: Emergency Medicine; Internal Medicine; Admitting Provider Internal Medicine; Emergency Provider Physician Assistant; PCP Internal Medicine; Visit Provider Internal Medicine
DX: K70.31 Alcoholic cirrhosis of liver with ascites (principal); D61.818 Other pancytopenia; E87.1 Hypo-osmolality and hyponatremia; D50.9 Iron deficiency anemia, unspecified; D73.1 Hypersplenism; Z91.148 Patient's other noncompliance with medication regimen for other reason
CPT/HCPCS: 36415; 49083; 71045; 80048; 80053; 81001; 82042; 82140; 82150; 82533; 82570; 82945; 83605; 83615; 83690; 83735; 83880; 84132; 84157; 84443; 84484; 84540; 85025; 85027; 85055; 85610; 85730; 87070; 87075; 87205; 89051; 96365; 96366; 96376; 99285; A9270; G0378; P9047

== ENCOUNTER 2022-10-16 00:29 | Emergency (ER) | payer OTHER, MEDICARE, SELFPAY ==
[2022-10-16] VITALS (26 sets, daily range): BP systolic 111–165; BP diastolic 60–95; PULSE 59–106; RESP 11–27; TEMP 36.1–36.4; O2SAT 84–100; BMI 28.1; BMI 27.1
--- NOTE | ~2022-10-16 | CT_ITS ---
CT of the Abdomen and Pelvis: Indication: Right inguinal hernia Technique: 2.5 mm axial scans were obtained through the abdomen and pelvis following intravenous adm inistration of 100 cc of Omnipaque 350. Dose reduction technique was used on this scan by utilizing a utomated exposure control and iterative reconstruction technique. The dose-length product (DLP) was 1 403.82 mGy-cm. Findings: Scans through the lung bases demonstrate small left pleural effusion with left basilar cheryl undglass pulmonary disease.. Liver is overall small with nodular contour, compatible with cirrhotic change. There is an area of il l-defined irregular hypodensity in the posterior liver measuring up to approximately 3.2 x 1.7 cm in extent (axial images 69-75). Splenomegaly present. Esophageal varices are present. Pancreas, gallblad isaura, adrenals and kidneys are within normal limits. There are atherosclerotic calcifications of the a ciera. No lymphadenopathy. There is an extremely large amount of abdominopelvic ascites. There is a large right inguinal hernia containing large ascitic fluid, as well as probably several small bowel loops. No bowel obstruction e vident. Images through the pelvis are mildly degraded by streak artifact from bilateral hip arthroplasty. Uri nary bladder unremarkable. Prostate gland and seminal vesicles are grossly unremarkable. Impression: Large right inguinal hernia containing large amount of ascitic fluid as well as several small bowel l oops. No bowel obstruction. Correlate clinically for incarceration/angulation. Cirrhotic liver with associated splenomegaly, extremely large amount of abdominopelvic ascites, and e sophageal varices. 3.2 x 1.7 cm irregular hypodense lesion in the posterior liver is suspicious for hepatocellular carci noma in the setting of cirrhosis. Small left pleural effusion with probable left basilar atelectasis/pulmonary edema. Correlate clinica lly for pneumonia. Reviewed, dictated and finalized at [facility]. Impression: Large right inguinal hernia containing large amount of ascitic fluid as well as several small bowel loops. No bowel obstruction. Correlate clinically for inca rceration/angulation. Cirrhotic liver with associated splenomegaly, extremely large amount of abdomin opelvic ascites, and esophageal varices. 3.2 x 1.7 cm irregular hypodense lesion in the posterior liver is suspicious fo r hepatocellular carcinoma in the setting of cirrhosis. Small left pleural effusion with probable left basilar atelectasis/pulmonary ed kiara. Correlate clinically for pneumonia.
[2022-10-16] MEDS: ONDANSETRON INJ 4 MG/2 ML VIAL IV PUSH ×2 (01:06→07:55)
[2022-10-16] MEDS: fentaNYL CITRATE INJ (*CRX) 100 MCG/2 ML VIAL 50 MCG IV PUSH ×3 (01:06→03:37)
[2022-10-16] MEDS: PIPERACILLN/TAZ 3.375GM/NS50ML 3.375 GM/50 ML BAG IVPB (01:06)
[2022-10-16 01:07] LABS: Basophils Percent Auto 1.2 % (0.2-1.2); Eosinophils Absolute Auto 0.1 K/mm3 (0-0.3); Eosinophils Percent Auto 2.7 % (0-4.4); Hematocrit 33.4 % (42.0-52.0); Hemoglobin 11.3 g/dL (14.0-18.0); Immature Granulocyte Absolute 0.01 K/mm3 (0.00-0.031); Immature Granulocyte Percent A 0.3 % (0-0.5); Immature Platelet Fraction Pct 1.9 % (0.9-11.2); Lymphocytes Absolute Auto 0.61 K/mm3 (0.9-3.2); Lymphocytes Percent Auto 18.1 % (18.3-44.2); Mean Corpuscular HGB Conc 33.8 g/dl (32-36); Mean Corpuscular Hemoglobin 28.8 pg (26-34); Mean Platelet Volume 9.7 fl (7.4-10.4); Monocytes Absolute Auto 0.2 K/mm3 (0.1-0.6); Monocytes Percent Auto 7.1 % (2.6-8.5); Neutrophils Absolute Auto 2.4 K/mm3 (1.3-6.7); Neutrophils Percent Auto 70.6 % (45.5-73.1); Platelet Count Result 65 k/mm3 (150-375); Red Blood Count 3.93 M/mm3 (4.6-6.20); Red Cell Distribution Width 16.4 % (11.5-14.5); White Blood Count 3.4 K/mm3 (4.5-10.0)
[2022-10-16 01:19] LABS: Alanine Aminotransferase 36 U/L (6-50); Albumin Level 3.3 g/dL (3.5-5.1); Alkaline Phosphatase 101 U/L (38-126); Anion Gap 12 mmol/L (8-16); Aspartate Amino Transferase 55 U/L (17-59); Bilirubin,Total 2.2 mg/dL (0.2-1.3); Blood Urea Nitrogen 30 mg/dL (9-20); Calcium 8.4 mg/dL (8.4-10.2); Carbon Dioxide 20 mmol/L (22-30); Chloride 100 mmol/L (98-107); Estimated CRCL calculation 53 ml/min; Estimated Glomerular Filt Rate 55; Glucose 193 mg/dL (65-110); Lactic Acid Reflex 3.9 mmol/L (0.7-2.0); Potassium 3.6 mmol/L (3.4-5.0); Sodium 132 mmol/L (137-145)
[2022-10-16 01:31] LABS: Burr Cells 2+ (NORMAL); Ovalocytes 1+ (NORMAL); Platelet Estimate Decreased (Adequate); Schistocytes None Seen (NORMAL)
--- NOTE | 2022-10-16 01:31 | PC.NURSE ---
pt presents to the er with an extremely large distended and not symmetrical abd. The adb is larger on the left side. Skin is jaundice. pt is pale, yellow and has multiple skin tears noted. Pt's family sts that he was just here and had 5L removed x4. Pt feet are +4 Pitting edema in BLLE. Pt placed on the monitor. ABd is making it hard for pt to breath. Pt is axox4, pt placed on monitor and NSR noted. Iv established and labs drawn and sent. Pt sts that he does not produce urine.
[2022-10-16 01:33] LABS: INR 1.3; Prothrombin Time 16.8 Seconds (11.1-14.7)
[2022-10-16 01:34] LABS: Partial Thromboplastin Time 30.2 SECONDS (22.3-36.8)
--- NOTE | 2022-10-16 02:18 | ED.ABDPAIN ---
HPI - Abdominal Pain General Chief Complaint: Abdominal Pain Stated Complaint: bloated/n/v Time Seen by Provider: 10/16/22 00:40 History of Present Illness HPI narrative: 67-year-old male with history of cirrhosis presenting with 3 hours onset of severe pain to his right lower abdomen. Also reports nausea and vomiting. Related Data Home Medications Medication Instructions Recorded Confirmed cholecalciferol (vitamin D3) 62.5 62.5 mcg PO DAILY 06/27/22 10/05/22 mcg (2,500 unit) capsule ferrous sulfate 325 mg (65 mg 325 mg PO .Every Other Day 06/27/22 10/05/22 iron) tablet magnesium oxide 400 mg PO BID 06/27/22 10/05/22 vit B complex 100 combo no.2 100 1 tablet PO DAILY 06/27/22 10/05/22 mg tablet,extended release (B-100 Complex ER) Allergies Allergy/AdvReac Type Severity Reaction Status Date / Time No Known Allergies Allergy Mild Verified 09/26/22 09:36 Review of Systems Review of Systems: CONST: No fever. HEENT: No sore throat C/V: No chest pain RESP: No cough GI: Reports abdominal pain, nausea, vomiting : No dysuria. M/S: Bilateral lower extremity edema SKIN: No rash. NEURO: [No headache or focal numbness or weakness] PSYCH: [No depression] [facility] Past Medical History Medical History (Updated 10/16/22 @ 03:10 by Mary Grace Miranda MD) Adenomatous colon polyp Ascites Chronic hyponatremia Cirrhosis, alcoholic History of alcohol abuse Leg edema Pancytopenia Positive colorectal cancer screening using Cologuard test Family History Family History Father Family history of malignant neoplasm of urinary bladder, Onset Age: 3 Other Family history of malignant neoplasm Social History Social History (Updated 10/05/22 @ 09:00 by Awais Ivy MD) Social History: Resides in his own home. Still works part-time for the [employer] for the [employer]. Does mainly paperwork. Quit drinking in February of 2022, was about 12 beers per day for many years. Smoking status: Never smoker Alcohol intake: former Drinks per week: 6 Substance use: never Lack of Transportation: No Lack of Food: Never True Current Housing: I Have Housing Concerned About Future Housing: No Difficulty Paying Gas/Electric Bills: No Difficulty Paying for Meds: No Currently Unemployed: No Education: High School Diploma/GED Difficulty w/ Childcare or Family Care: No Living arrangements: alone Occupation/Education: occupation Spiritual care concerns: No Exam Narrative: EXAMINATION OF ORGAN SYSTEMS/BODY AREAS: Constitutional: Vital signs per nursing GENERAL:[No acute distress, non-toxic appearing.] HEAD: Normal with no signs of head trauma. EYES: EOMI, conjunctiva normal ENT: Hearing grossly intact LUNGS: Nonlabored breathing. HEART: [Regular rate and rhythm] ABD: Large ascites, and tender, tense right inguinal hernia without overlying skin changes EXT: Pitting bilateral lower extremity edema SKIN: [No rashes or lesions.] NEURO: [Alert and oriented x 3. No gross focal sensory or strength deficits.] PSYCH: Normal affect Course Vital Signs Vital signs: Vital Signs Temperature 97.6 F 10/16/22 00:32 Pulse Rate 65 10/16/22 00:32 Respiratory Rate 18 10/16/22 00:32 Blood Pressure 148/60 H 10/16/22 00:32 Pulse Oximetry 100 10/16/22 00:32 Oxygen Delivery Room Air 10/16/22 00:32 Temperature 97.6 F 10/16/22 00:32 Pulse Rate 59 L 10/16/22 03:45 Respiratory Rate 14 10/16/22 03:45 Blood Pressure 151/77 H 10/16/22 03:31 Pulse Oximetry 84 L 10/16/22 03:45 Oxygen Delivery Room Air 10/16/22 00:32 MDM - Abdominal Pain MDM Narrative Medical decision making narrative: Electronic medical record was reviewed. Patient presented to the ED with complaint of [abdominal pain and vomiting]. Vitals [were within acceptable limits]. Physical exam revealed ascites and lar
--- NOTE | 2022-10-16 03:09 | PC.NURSE ---
pt is now hospice
--- NOTE | 2022-10-16 03:49 | PC.NURSE ---
pt is controlling secretions at this time. scop patch held
[2022-10-16 03:51] LABS: Appearance Urine Clear (Clear); Bacteria Urine None Seen /hpf; Bilirubin Urine Negative (Negative); Blood Urine Negative (Negative); Color Urine Yellow (Yellow); Glucose Urine UA Negative (Negative); Ketones Urine Negative (Negative); Leukocyte Esterase Ur Negative LEU/UL (Negative); Nitrate Urine Negative (Negative); Non Pathogenic Casts 0-2; Protein Urine Trace mg/dL (Negative); RBC Urine 0-2 /hpf (0-2); Specific Grav Ur 1.034 (1.001-1.035); Squamous Epithelial Cell Urine None seen /hpf (Few); WBC Urine 0-5 /hpf; pH Urine 8.5 (5.0-9.0)
--- NOTE | 2022-10-16 03:54 | PC.NURSE ---
IVP pain meds. pt appears to be resting and not grimacing at this time
--- NOTE | 2022-10-16 03:58 | PC.NURSE ---
Per this RN can dc all vital signs down in the er.
[2022-10-16 04:03] LABS: Reflex Lactic Acid Yes or No Add Lactic
[2022-10-16 04:05] LABS: Add Urine Microscopic? YES
--- NOTE | 2022-10-16 04:08 | PC.NURSE ---
personal care attendant was turned off
[2022-10-16] MEDS: MORPHINE SULFATE (*CRX) 2 MG/ML INJ IV PUSH ×3 (05:23→07:56)
--- NOTE | 2022-10-16 05:56 | PC.NURSE ---
pt is resting with closed eyes. Pt is waiting on Hospice care for Hospice placement. pts pain is now 5/10
--- NOTE | 2022-10-16 07:16 | PC.NURSE ---
Assumed care of pt, pt is alert and upright on stretcher w/ lights dimmed. Discussed POC. Per Cony at bedside report, pt is going on hospice and would not like vital signs taken at this time.
--- NOTE | 2022-10-16 07:54 | PCCCNOTE ---
Met with patient bedside, patient is alert and oriented x 4, I ADL and lives alone. patient was brought in for n/v r/t cirrhosis. patient filled out HPOA forms and designated Idaramiro Sheridan as his HPOA. At this time patient is electing for hospice and would like a referral sent to [facility] hospice. MD referral states a GIP referral is needed. CC faxed referral and spoke with [facility] marketing research coordinator at [facility]. They will be here to evaluate gilbert.
--- NOTE | 2022-10-16 09:31 | PC.NURSE ---
Moni ZAPATA w/ [facility] here to discuss hospice care with pt. Moni taken to pt bedside and introduced to pt. Pt reports his pain is manageable at this time and not requesting more currently.
[2022-10-16] MEDS: METOCLOPRAMIDE HCL INJ 10 MG/2 ML VIAL IV PUSH (10:17)
[2022-10-16] MEDS: diphenhydrAMINE HCl INJ 50 MG/ML VIAL IV PUSH (10:17)
--- NOTE | 2022-10-16 11:27 | PM.IMHP ---
H&P: HPI History of Present Illness Date/Time: 10/16/22 11:27 Chief Complaint: 67-year-old male with history of cirrhosis presenting with 3 hours onset of severe pain to his right lower abdomen.? Also reports nausea and vomiting. Review of Systems Review of Systems: Ten point review of systems negative except as stated in HPI [facility] Past Medical History Medical History Adenomatous colon polyp Ascites Chronic hyponatremia Cirrhosis, alcoholic History of alcohol abuse Leg edema Pancytopenia Positive colorectal cancer screening using Cologuard test Family History Family History Father Family history of malignant neoplasm of urinary bladder, Onset Age: 3 Other Family history of malignant neoplasm Social History Social History Social History: Resides in his own home. Still works part-time for the [employer] for the [employer]. Does mainly paperwork. Quit drinking in February of 2022, was about 12 beers per day for many years. Smoking status: Never smoker Alcohol intake: former Drinks per week: 6 Substance use: never Lack of Transportation: No Lack of Food: Never True Current Housing: I Have Housing Concerned About Future Housing: No Difficulty Paying Gas/Electric Bills: No Difficulty Paying for Meds: No Currently Unemployed: No Education: High School Diploma/GED Difficulty w/ Childcare or Family Care: No Living arrangements: alone Occupation/Education: occupation Spiritual care concerns: No Meds Home Medications and Allergies Home Medications Medication Instructions Recorded Confirmed Type cholecalciferol (vitamin D3) 62.5 62.5 mcg PO DAILY 06/27/22 10/05/22 History mcg (2,500 unit) capsule ferrous sulfate 325 mg (65 mg 325 mg PO .Every Other Day 06/27/22 10/05/22 History iron) tablet magnesium oxide 400 mg PO BID 06/27/22 10/05/22 History vit B complex 100 combo no.2 100 1 tablet PO DAILY 06/27/22 10/05/22 History mg tablet,extended release (B-100 Complex ER) zinc sulfate 50 mg zinc (220 mg) 50 mg PO DAILY #30 caps 06/27/22 10/05/22 Rx capsule furosemide 20 mg tablet 60 mg PO QAM 1 month #90 tabs 09/26/22 10/05/22 Rx spironolactone 50 mg tablet 150 mg PO DAILY 1 month #90 tabs 09/26/22 10/05/22 Rx Allergies Allergy/AdvReac Type Severity Reaction Status Date / Time No Known Allergies Allergy Mild Verified 09/26/22 09:36 Vital Signs Vital Signs - 24 hr 10/16/22 00:32 10/16/22 00:41 10/16/22 00:45 Temperature 97.6 F Pulse Rate 65 78 80 Respiratory Rate 18 25 H 22 H Blood Pressure 148/60 H Pulse Oximetry 100 Oxygen Delivery Room Air 10/16/22 00:46 10/16/22 01:00 10/16/22 01:02 Temperature Pulse Rate 89 74 71 Respiratory Rate 13 20 15 Blood Pressure 164/84 H 162/67 H Pulse Oximetry 100 93 100 Oxygen Delivery 10/16/22 01:17 10/16/22 01:31 10/16/22 01:32 Temperature Pulse Rate 66 69 65 Respiratory Rate 27 H 15 Blood Pressure 165/71 H Pulse Oximetry 95 Oxygen Delivery 10/16/22 01:55 10/16/22 02:00 10/16/22 02:16 Temperature Pulse Rate 75 66 72 Respiratory Rate 14 14 17 Blood Pressure 131/76 Pulse Oximetry 100 100 100 Oxygen Delivery 10/16/22 02:30 10/16/22 02:45 10/16/22 03:00 Temperature Pulse Rate 67 63 62 Respiratory Rate 15 18 14 Blood Pressure Pulse Oximetry 100 100 Oxygen Delivery 10/16/22 03:01 10/16/22 03:15 10/16/22 03:17 Temperature Pulse Rate 61 68 76 Respiratory Rate 11 L 22 H 23 H Blood Pressure 158/64 H 155/78 H Pulse Oximetry 99 100 99 Oxygen Delivery 10/16/22 03:30 10/16/22 03:31 10/16/22 03:45 Temperature Pulse Rate 69 72 59 L Respiratory Rate 17 19 14 Blood Pressure 151/77 H Pulse Oximetry 100 100 84 L Oxygen Deliver
[2022-10-16] MEDS: MORPHINE 50 MG/NS 100ML (*CRX) 50 MG/100 ML BAG IV CONT (14:30)
[2022-10-16] MEDS: GLYCOPYRROLATE INJ (*SP) 0.2 MG/ML VIAL 0.1 MG IV PUSH ×2 (14:47→20:47)
--- NOTE | 2022-10-16 16:16 | PM.IMHP ---
H&P: HPI History of Present Illness Date/Time: 10/16/22 16:16 Chief Complaint: Uncontrolled pain Narrative: This unfortunate 67-year-old gentleman with alcohol-induced cirrhosis with associated ascites and edema requiring Jan current paracenteses for control of fluid was in his usual state of health until the day before admission. That he may experience the onset of severe pain in the right lower abdomen. He has a known inguinal hernia that he had been reducing intermittently when he had discomfort that was mild. Pain yesterday became severe. Hard lump developed in the right groin. The presented the emergency room where he was found by scanning to have an incarcerated hernia. He had associated nausea vomiting. No bowel movement since a day or 2 ago. No abnormal bleeding. No hematemesis. Denied chest pain or shortness of breath. Chronic edema is stable. Denied focal weakness or numbness. No appetite. Has not eaten for at least 2 days. Has been losing weight and strength. Because of his poor physical health declining functional status and severe operative risk he opted for comfort care on inpatient hospice service. Review of Systems Review of Systems: All systems reviewed & are unremarkable except as noted in HPI and below PMFSH Past Medical History Medical History Adenomatous colon polyp Ascites Chronic hyponatremia Cirrhosis, alcoholic History of alcohol abuse Leg edema Pancytopenia Positive colorectal cancer screening using Cologuard test Family History Family History Father Family history of malignant neoplasm of urinary bladder, Onset Age: 3 Other Family history of malignant neoplasm Social History Social History (Updated 10/16/22 @ 16:17 by Awais Ivy MD) Social History: Resides in his own home. Still works part-time for the [employer]. Does mainly paperwork. Quit drinking in February of 2022, was about 12 beers per day for many years. Code status: DNR Smoking status: Never smoker Alcohol intake: former Drinks per week: 100 Substance use: never Lack of Transportation: No Lack of Food: Never True Current Housing: I Have Housing Concerned About Future Housing: No Difficulty Paying Gas/Electric Bills: No Difficulty Paying for Meds: No Currently Unemployed: No Education: Trade/Vocational Certificate Difficulty w/ Childcare or Family Care: No Living arrangements: alone Occupation/Education: occupation Spiritual care concerns: No Meds Home Medications and Allergies Home Medications Medication Instructions Recorded Confirmed Type cholecalciferol (vitamin D3) 62.5 62.5 mcg PO DAILY 06/27/22 10/05/22 History mcg (2,500 unit) capsule ferrous sulfate 325 mg (65 mg 325 mg PO .Every Other Day 06/27/22 10/05/22 History iron) tablet magnesium oxide 400 mg PO BID 06/27/22 10/05/22 History vit B complex 100 combo no.2 100 1 tablet PO DAILY 06/27/22 10/05/22 History mg tablet,extended release (B-100 Complex ER) zinc sulfate 50 mg zinc (220 mg) 50 mg PO DAILY #30 caps 06/27/22 10/05/22 Rx capsule furosemide 20 mg tablet 60 mg PO QAM 1 month #90 tabs 09/26/22 10/05/22 Rx spironolactone 50 mg tablet 150 mg PO DAILY 1 month #90 tabs 09/26/22 10/05/22 Rx Allergies Allergy/AdvReac Type Severity Reaction Status Date / Time No Known Allergies Allergy Mild Verified 09/26/22 09:36 Vital Signs Vital Signs - 24 hr 10/16/22 00:32 10/16/22 00:41 10/16/22 00:45 Temperature 97.6 F Pulse Rate 65 78 80 Respiratory Rate 18 25 H 22 H Blood Pressure 148/60 H Pulse Oximetry 100 Oxygen Delivery Room Air 10/16/22 00:46 10/16/22 01:00 10/16/22 01:02 Temperature Pulse Rate 89 74 71 Respiratory Rate 13 20 15 Blood Pressure 164/84 H 162/67 H Pulse Oximetry 100 93 100 Oxygen Caliive
--- NOTE | 2022-10-16 18:31 | PC.NURSE ---
Pt is a newly admitted hospice pt. Pt has morphine drip going and pt is tolerating well. Pt has been compliant with bedrest. Pt resting comfortably and has reported no breakthrough pain. Pt has been very lethargic. Will continue to monitor pt.
[2022-10-17] MEDS: GLYCOPYRROLATE INJ (*SP) 0.2 MG/ML VIAL 0.1 MG IV PUSH (00:17)
[2022-10-17 08:19] VITALS: O2SAT 96
[2022-10-17 14:51] VITALS: PULSE 106; RESP 16
[2022-10-17] MEDS: MORPHINE 50 MG/NS 100ML (*CRX) 50 MG/100 ML BAG IV CONT (14:51)
[2022-10-17 15:43] VITALS: BP 108/63; PULSE 98; RESP 16; TEMP 36.8; O2SAT 98
--- NOTE | 2022-10-17 18:40 | PC.NURSE ---
Pt is hospice pt that is A&O4. Pt has reported being comfortable and has required no breakthrough medication. Pt denies any pain at this time. Pt only request today has been ice water. Pt has feedings for comfort and is tolerating well. Pt uses urinal and denies need for burgos at this time, order remains in place. Pt stands at side of bed when urinating. Pt has alarms on. Pt has been monitored for any changes in status. Will continue to monitor.
[2022-10-17 20:45] VITALS: O2SAT 93
--- NOTE | 2022-10-17 21:01 | PM.IMPN ---
Progress Note: A&P Assessment and Plan (1) Palliative care encounter: Code(s): Z51.5 - Encounter for palliative care Status: Acute Assessment and Plan: Meet inpatient hospice criteria due to requiring continues IV morphine for analgesia 10/17/2022 pain adequately controlled. Add schedule laxative. Consider transition to sublingual medication in the next 12:48 p.m. if he remains stable. (2) Incarcerated hernia: Code(s): K46.0 - Unspecified abdominal hernia with obstruction, without gangrene Status: Acute Assessment and Plan: Not a surgical candidate (3) Chronic hyponatremia: Code(s): E87.1 - Hypo-osmolality and hyponatremia Status: Acute (4) Cirrhosis, alcoholic: Code(s): K70.30 - Alcoholic cirrhosis of liver without ascites Status: Acute Subjective Date/time seen: 10/17/22 21:01 Interval history: Ate about 50% of food today. Pain control with continuous IV morphine. Intermittent nausea but no emesis. No bowel movement. Review of Systems Review of Systems: All systems reviewed & are unremarkable except as noted in HPI and below Exam Narrative: Elderly gentleman lying in hospital bed in no acute distress with IV morphine infusing continuously. Appears older than stated age. Sclerae nonicteric, oral mucosa pink and moist Neck without JVD Chest decreased breath sounds at bases Heart regular rate no audible murmur normal S1 and S2 Abdomen protuberant but soft no palpable organomegaly, firm tender mass right groin Extremities 4+ mixed pitting and nonpitting edema bilateral lower extremities distally and 2+ in thighs Musculoskeletal without gross deformity to visual inspection Neurologic cranial nerves 2-12 intact to visual inspection Psychiatric alert oriented person place and time Objective Data Vital Signs Vital Signs: Vital Signs - 24 hr 10/16/22 22:19 10/17/22 08:19 10/17/22 08:00 Temperature 96.9 F L Pulse Rate 106 H Respiratory Rate 16 Blood Pressure 111/72 Pulse Oximetry 96 96 Oxygen Delivery Room Air Room Air 10/17/22 14:51 10/17/22 14:51 10/17/22 15:43 Temperature 98.2 F Pulse Rate 106 H 106 H 98 Respiratory Rate 16 16 16 Blood Pressure 108/63 Pulse Oximetry 98 Oxygen Delivery Intake/Output Intake/Output: Intake & Output 10/14/22 10/15/22 10/16/22 10/17/22 23:59 23:59 23:59 23:59 Intake Total 0 1008.3 Output Total 250 25 Balance -250 983.3 Meds/Results Medications: Active Medications Generic Name Dose Route Start Last Admin Trade Name Freq PRN Reason Stop Dose Admin Acetaminophen 650 mg 10/16/22 13:25 Acetaminophen 650 Mg Suppository RECTAL Q4H PRN Fever Artificial Tears 1 drop 10/16/22 13:22 Artificial Tears Ophth Soln 15 Ml Bottle EACH EYE Q4H PRN Dry Eye(s) Bisacodyl 10 mg 10/16/22 13:25 Bisacodyl 10 Mg Suppository RECTAL DAILY PRN Constipation Glycopyrrolate 0.1 mg 10/17/22 09:13 Glycopyrrolate Inj (*Sp) 0.2 Mg/Ml Vial IV PUSH Q6H PRN Secretions Morphine Sulfate 50 mg in 100 mls @ 2 mls/hr 10/16/22 14:00 10/17/22 14:51 IV CONT 1 mg/hr .Q24H WENDY 2 mls/hr Administration 1 MG/HR Lorazepam 1 mg 10/17/22 20:42 Lorazepam Inj (*Crx) 2 Mg/Ml Vial IV PUSH Q6H PRN Anxiety Morphine Sulfate 2 mg 10/16/22 03:15 10/16/22 07:56 Morphine Sulfate (*Crx) 2 Mg/Ml Inj IV PUSH 2 mg Q30M PRN Administration COMFORT Morphine Sulfate 2 mg 10/16/22 13:20 Morphine Sulfate (*Crx) 2 Mg/Ml Inj IV PUSH Q2H PRN Pain Rated 7-10 Prochlorperazine Edisylate 10 mg 10/17/22 09:12 Prochlorperazine Edisylate 10 Mg/2 Ml Vial IV PUSH Q6H PRN Nausea And Vomiting Radiology Results: ITS Impressions Abdomen/Pelvis CT 10/16/22 06:00 Impression: Large right inguinal hernia containing large amount of ascitic fluid as well as several small bowel loop
[2022-10-17 21:33] VITALS: BP 106/60; PULSE 103; RESP 18; TEMP 36.7; O2SAT 92
--- NOTE | 2022-10-18 06:56 | PM.IMPN ---
Progress Note: A&P Assessment and Plan (1) Palliative care encounter: Code(s): Z51.5 - Encounter for palliative care Status: Acute Assessment and Plan: Meet inpatient hospice criteria due to requiring continues IV morphine for analgesia 10/18/2022 pain adequately controlled. Added schedule laxative. Consider transition to sublingual medication in the next 12:48 p.m. if he remains stable. (2) Incarcerated hernia: Code(s): K46.0 - Unspecified abdominal hernia with obstruction, without gangrene Status: Acute Assessment and Plan: Not a surgical candidate (3) Chronic hyponatremia: Code(s): E87.1 - Hypo-osmolality and hyponatremia Status: Acute (4) Cirrhosis, alcoholic: Code(s): K70.30 - Alcoholic cirrhosis of liver without ascites Status: Acute Subjective Date/time seen: 10/18/22 06:56 Interval history: Tolerating diet. Pain control with continuous IV morphine. Intermittent nausea but no emesis. No bowel movement. Review of Systems Review of Systems: All systems reviewed & are unremarkable except as noted in HPI and below Exam Narrative: Elderly gentleman lying in hospital bed in no acute distress with IV morphine infusing continuously. Appears older than stated age. Sclerae nonicteric, oral mucosa pink and moist Neck without JVD Chest decreased breath sounds at bases Heart regular rate no audible murmur normal S1 and S2 Abdomen protuberant but soft no palpable organomegaly, firm tender mass right groin Extremities 4+ mixed pitting and nonpitting edema bilateral lower extremities distally and 2+ in thighs Musculoskeletal without gross deformity to visual inspection Neurologic cranial nerves 2-12 intact to visual inspection Psychiatric alert oriented person place and time Objective Data Vital Signs Vital Signs: Vital Signs - 24 hr 10/17/22 08:19 10/17/22 08:00 10/17/22 14:51 Temperature Pulse Rate 106 H Respiratory Rate 16 Blood Pressure Pulse Oximetry 96 Oxygen Delivery Room Air Room Air 10/17/22 14:51 10/17/22 15:43 10/17/22 20:00 Temperature 98.2 F Pulse Rate 106 H 98 Respiratory Rate 16 16 Blood Pressure 108/63 Pulse Oximetry 98 Oxygen Delivery Room Air 10/17/22 21:33 10/17/22 20:45 Temperature 98.1 F Pulse Rate 103 H Respiratory Rate 18 Blood Pressure 106/60 Pulse Oximetry 92 93 Oxygen Delivery Autopap Intake/Output Intake/Output: Intake & Output 10/15/22 10/16/22 10/17/22 10/18/22 23:59 23:59 23:59 23:59 Intake Total 0 1408.3 400 Output Total 475 832 1395 Balance -250 1283.3 -800 Meds/Results Medications: Active Medications Generic Name Dose Route Start Last Admin Trade Name Freq PRN Reason Stop Dose Admin Acetaminophen 650 mg 10/16/22 13:25 Acetaminophen 650 Mg Suppository RECTAL Q4H PRN Fever Artificial Tears 1 drop 10/16/22 13:22 Artificial Tears Ophth Soln 15 Ml Bottle EACH EYE Q4H PRN Dry Eye(s) Bisacodyl 10 mg 10/16/22 13:25 Bisacodyl 10 Mg Suppository RECTAL DAILY PRN Constipation Glycopyrrolate 0.1 mg 10/17/22 09:13 Glycopyrrolate Inj (*Sp) 0.2 Mg/Ml Vial IV PUSH Q6H PRN Secretions Morphine Sulfate 50 mg in 100 mls @ 2 mls/hr 10/16/22 14:00 10/17/22 14:51 IV CONT 1 mg/hr .Q24H WENDY 2 mls/hr Administration 1 MG/HR Lorazepam 1 mg 10/17/22 20:42 Lorazepam Inj (*Crx) 2 Mg/Ml Vial IV PUSH Q6H PRN Anxiety Morphine Sulfate 2 mg 10/16/22 03:15 10/16/22 07:56 Morphine Sulfate (*Crx) 2 Mg/Ml Inj IV PUSH 2 mg Q30M PRN Administration COMFORT Morphine Sulfate 2 mg 10/16/22 13:20 Morphine Sulfate (*Crx) 2 Mg/Ml Inj IV PUSH Q2H PRN Pain Rated 7-10 Prochlorperazine Edisylate 10 mg 10/17/22 09:12 Prochlorperazine Edisylate 10 Mg/2 Ml Vial IV PUSH Q6H PRN Nausea And Vomiting Senna 17.2 mg 10/17/22 21:00 Sennosi
[2022-10-18 08:00] VITALS: BP 87/44; PULSE 103; PULSE 107; RESP 18; TEMP 36.2; O2SAT 92; O2SAT 97
[2022-10-18 08:38] VITALS: BP 84/51
[2022-10-18 13:13] VITALS: PULSE 110; RESP 15; RESP 16
[2022-10-18] MEDS: MORPHINE 50 MG/NS 100ML (*CRX) 50 MG/100 ML BAG IV CONT (13:13)
[2022-10-18] MEDS: PROCHLORPERAZINE EDISYLATE 10 MG/2 ML VIAL IV PUSH ×2 (13:13→19:47)
[2022-10-18] MEDS: MORPHINE SULFATE (*CRX) 2 MG/ML INJ IV PUSH (19:56)
[2022-10-18 20:00] VITALS: BP 89/55; PULSE 114; RESP 20; TEMP 36.7; O2SAT 95
[2022-10-19] MEDS: MORPHINE SULFATE (*CRX) 2 MG/ML INJ IV PUSH ×4 (02:08→22:48)
[2022-10-19 08:00] VITALS: BP 91/50; PULSE 102; RESP 12; TEMP 36.4; O2SAT 94
[2022-10-19] MEDS: polyethylene glycoL 3350 17 GM POWD.PACK PO (09:09)
[2022-10-19] MEDS: PROCHLORPERAZINE EDISYLATE 10 MG/2 ML VIAL IV PUSH (11:08)
[2022-10-19 14:17] VITALS: PULSE 64; RESP 16
[2022-10-19] MEDS: MORPHINE 50 MG/NS 100ML (*CRX) 50 MG/100 ML BAG IV CONT (14:17)
--- NOTE | 2022-10-19 14:44 | WPDPN ---
Progress Note: A&P Assessment and Plan (1) Palliative care encounter: Code(s): Z51.5 - Encounter for palliative care Status: Acute Assessment and Plan: Meet inpatient hospice criteria due to requiring continues IV morphine for analgesia, on continuous drip and getting prn doses. 10/19/2022 pain adequately controlled. Added schedule laxative. Still no BM but on miralax now. (2) Incarcerated hernia: Code(s): K46.0 - Unspecified abdominal hernia with obstruction, without gangrene Status: Acute Assessment and Plan: Not a surgical candidate (3) Chronic hyponatremia: Code(s): E87.1 - Hypo-osmolality and hyponatremia Status: Acute (4) Ascites: Qualifiers: Ascites type: due to alcoholic cirrhosis Qualified Code(s): K70.31 - Alcoholic cirrhosis of liver with ascites Code(s): R18.8 - Other ascites Status: Acute Subjective Date/time seen: 10/19/22 14:44 Interval history: Has required several doses of prn morphine in addition to the continuous drip. Reports pain controlled right now. Drinking fairly well but not eating much. No BM, took some miralax today. Exam Const: General: no acute distress, alert, awake and tired appearing Orientation/consciousness: patient oriented x3 Resp: Effort & Inspection: normal respiratory effort Auscultation: clear to auscultation bilaterally Cardio: Rate: regular rate and tachycardic GI: Inspection: distended Other: Abdomen distended with ascites Extrem: Other: 4+ bilateral LE edema Objective Data Vital Signs Vital Signs: Vital Signs - 24 hr 10/18/22 20:00 10/18/22 20:00 10/19/22 14:17 Temperature 36.7 C Pulse Rate 114 H 114 H 64 Respiratory Rate 20 20 16 Blood Pressure 89/55 L Pulse Oximetry 95 95 Oxygen Delivery Autopap 10/19/22 14:17 Temperature Pulse Rate 64 Respiratory Rate 16 Blood Pressure Pulse Oximetry Oxygen Delivery Intake/Output Intake/Output: Intake & Output 10/16/22 10/17/22 10/18/22 10/19/22 23:59 23:59 23:59 23:59 Intake Total 0 1408.3 1322 249 Output Total 959 517 7344 100 Balance -250 1283.3 -78 149 Meds/Results Medications: Active Medications Generic Name Dose Route Start Last Admin Trade Name Freq PRN Reason Stop Dose Admin Acetaminophen 650 mg 10/16/22 13:25 Acetaminophen 650 Mg Suppository RECTAL Q4H PRN Fever Artificial Tears 1 drop 10/16/22 13:22 Artificial Tears Ophth Soln 15 Ml Bottle EACH EYE Q4H PRN Dry Eye(s) Bisacodyl 10 mg 10/16/22 13:25 Bisacodyl 10 Mg Suppository RECTAL DAILY PRN Constipation Glycopyrrolate 0.1 mg 10/17/22 09:13 Glycopyrrolate Inj (*Sp) 0.2 Mg/Ml Vial IV PUSH Q6H PRN Secretions Morphine Sulfate 50 mg in 100 mls @ 2 mls/hr 10/16/22 14:00 10/19/22 14:17 IV CONT 1 mg/hr .Q24H WENDY 2 mls/hr Administration 1 MG/HR Lorazepam 1 mg 10/17/22 20:42 Lorazepam Inj (*Crx) 2 Mg/Ml Vial IV PUSH Q6H PRN Anxiety Morphine Sulfate 2 mg 10/16/22 13:20 10/19/22 09:09 Morphine Sulfate (*Crx) 2 Mg/Ml Inj IV PUSH 2 mg Q2H PRN Administration Pain Rated 7-10 Polyethylene Glycol 17 gm 10/18/22 09:00 10/19/22 09:09 Polyethylene Glycol 3350 17 Gm Powd.Pack PO 17 gm QAM WENDY Administration Prochlorperazine Edisylate 10 mg 10/17/22 09:12 10/19/22 11:08 Prochlorperazine Edisylate 10 Mg/2 Ml Vial IV PUSH 10 mg Q6H PRN Administration Nausea And Vomiting Senna 17.2 mg 10/17/22 21:00 10/19/22 05:32 Sennosides 8.6 Mg Tablet PO Not Given HS [facility] Radiology Results: ITS Impressions Abdomen/Pelvis CT 10/16/22 06:00 Impression: Large right inguinal hernia containing large amount of ascitic fluid as well as several small bowel loops. No bowel obstruction. Correlate clinically for incarceration/angulation. Cirrhotic liver with associated splenomegaly, extremely l
[2022-10-19 20:00] VITALS: BP 85/51; PULSE 110; RESP 18; TEMP 36.6; O2SAT 94
[2022-10-19] MEDS: SENNOSIDES 8.6 MG TABLET 17.2 MG PO (20:09)
[2022-10-19 21:32] VITALS: O2SAT 94
[2022-10-20] MEDS: MORPHINE SULFATE (*CRX) 2 MG/ML INJ IV PUSH ×3 (05:52→17:49)
[2022-10-20 08:00] VITALS: BP 95/53; PULSE 88; RESP 12; TEMP 36.2; O2SAT 94
[2022-10-20] MEDS: LORazepam INJ (*CRX) 2 MG/ML VIAL 1 MG IV PUSH ×2 (12:15→17:50)
[2022-10-20] MEDS: PROCHLORPERAZINE EDISYLATE 10 MG/2 ML VIAL IV PUSH (12:15)
[2022-10-20] MEDS: BISACODYL 10 MG SUPPOSITORY RECTAL (17:50)
[2022-10-20 17:54] VITALS: PULSE 63; RESP 12; RESP 14
[2022-10-20] MEDS: MORPHINE 50 MG/NS 100ML (*CRX) 50 MG/100 ML BAG IV CONT ×2 (17:54→20:45)
--- NOTE | 2022-10-20 19:47 | PM.IMPN ---
Progress Note: A&P Assessment and Plan (1) Palliative care encounter: Code(s): Z51.5 - Encounter for palliative care Status: Acute Assessment and Plan: Meet inpatient hospice criteria due to requiring continues IV morphine for analgesia 10/18/2022 pain adequately controlled. Added schedule laxative. Consider transition to sublingual medication in the next 12:48 p.m. if he remains stable. 10/20 Increased Morphine from 1 mg/hr to 2 mg/hr and bolus to 4 mg q 2 hr prn. D/w prognosis with nephew at bedside (2) Incarcerated hernia: Code(s): K46.0 - Unspecified abdominal hernia with obstruction, without gangrene Status: Acute Assessment and Plan: Not a surgical candidate (3) Chronic hyponatremia: Code(s): E87.1 - Hypo-osmolality and hyponatremia Status: Acute (4) Cirrhosis, alcoholic: Qualifiers: Ascites presence: with ascites Qualified Code(s): K70.31 - Alcoholic cirrhosis of liver with ascites Code(s): K70.30 - Alcoholic cirrhosis of liver without ascites Status: Acute Subjective Date/time seen: 10/20/22 19:47 Interval history: Was more alert earlier today while his estranged brother visited. Nephew at bedside this afternoon. Reports sleeping with some moaning and not arousing at all this evening. Review of Systems Review of Systems: ROS unobtainable: Yes unobtainable due to medical condition Exam Narrative: Elderly gentleman lying in hospital bed moaning with every breath. Sclerae nonicteric, oral mucosa pink and moist Neck without JVD Chest decreased breath sounds at bases Heart regular rate no audible murmur normal S1 and S2 Abdomen protuberant but soft no palpable organomegaly, firm tender mass right groin Extremities 4+ mixed pitting and nonpitting edema bilateral lower extremities distally and 2+ in thighs Musculoskeletal without gross deformity to visual inspection Neurologic cranial nerves 2-12 intact to visual inspection Psychiatric Unresponsive to verbal stimuli and responds only to palpation of hernia for tactile stimuli. Objective Data Vital Signs Vital Signs: Vital Signs - 24 hr 10/19/22 20:00 10/19/22 21:32 10/20/22 07:20 Temperature 97.9 F Pulse Rate 110 H Respiratory Rate 18 Blood Pressure 85/51 L Pulse Oximetry 94 94 Oxygen Delivery Room Air Room Air 10/20/22 08:00 10/20/22 17:54 10/20/22 17:54 Temperature 97.1 F L Pulse Rate 88 63 63 Respiratory Rate 12 14 12 Blood Pressure 95/53 L Pulse Oximetry 94 Oxygen Delivery Intake/Output Intake/Output: Intake & Output 10/17/22 10/18/22 10/19/22 10/20/22 23:59 23:59 23:59 23:59 Intake Total 1408.3 1322 249 200 Output Total 125 1400 200 450 Balance 1283.3 -78 49 -250 Meds/Results Medications: Active Medications Generic Name Dose Route Start Last Admin Trade Name Freq PRN Reason Stop Dose Admin Acetaminophen 650 mg 10/16/22 13:25 Acetaminophen 650 Mg Suppository RECTAL Q4H PRN Fever Artificial Tears 1 drop 10/16/22 13:22 Artificial Tears Ophth Soln 15 Ml Bottle EACH EYE Q4H PRN Dry Eye(s) Bisacodyl 10 mg 10/16/22 13:25 10/20/22 17:50 Bisacodyl 10 Mg Suppository RECTAL 10 mg DAILY PRN Administration Constipation Glycopyrrolate 0.1 mg 10/17/22 09:13 Glycopyrrolate Inj (*Sp) 0.2 Mg/Ml Vial IV PUSH Q6H PRN Secretions Morphine Sulfate 50 mg in 100 mls @ 2 mls/hr 10/16/22 14:00 10/20/22 17:54 IV CONT 1 mg/hr .Q24H WENDY 2 mls/hr Administration 1 MG/HR Lorazepam 1 mg 10/17/22 20:42 10/20/22 17:50 Lorazepam Inj (*Crx) 2 Mg/Ml Vial IV PUSH 1 mg Q6H PRN Administration Anxiety Morphine Sulfate 2 mg 10/16/22 13:20 10/20/22 17:49 Morphine Sulfate (*Crx) 2 Mg/Ml Inj IV PUSH 2 mg Q2H PRN Administration Pain Rated 7-10 Polyethylene Glycol 17 gm 10/18/22 09:00 10/20/22 10:24 Polyethylene Glycol 3350 17 Gm Powd.Pack
[2022-10-20 20:00] VITALS: BP 83/43; PULSE 105; RESP 18; TEMP 36.4; O2SAT 80
[2022-10-20] MEDS: MORPHINE SULFATE (*CRX) 4 MG/ML INJ IV PUSH ×2 (20:41→23:22)
[2022-10-20] MEDS: GLYCOPYRROLATE INJ (*SP) 0.2 MG/ML VIAL 0.1 MG IV PUSH (21:39)
[2022-10-21] MEDS: MORPHINE SULFATE (*CRX) 4 MG/ML INJ IV PUSH ×5 (02:30→11:28)
[2022-10-21 08:00] VITALS: BP 56/24; PULSE 108; RESP 14; TEMP 36.7; O2SAT 89; O2SAT 91
[2022-10-21] MEDS: LORazepam INJ (*CRX) 2 MG/ML VIAL 1 MG IV PUSH ×2 (08:21→22:42)
--- NOTE | 2022-10-21 10:34 | PC.NURSE ---
patient has been restless multiple times this morning and receiving prn medications. [facility]as notified.
[2022-10-21] MEDS: MORPHINE SULFATE (*CRX) 4 MG/ML INJ 8 MG IV PUSH ×2 (12:53→21:24)
[2022-10-21] MEDS: MORPHINE 50 MG/NS 100ML (*CRX) 50 MG/100 ML BAG 8 MG IV CONT (15:16)
--- NOTE | 2022-10-21 16:43 | PM.IMPN ---
Progress Note: A&P Assessment and Plan (1) Palliative care encounter: Code(s): Z51.5 - Encounter for palliative care Status: Acute Assessment and Plan: Meet inpatient hospice criteria due to requiring continues IV morphine for analgesia 10/18/2022 pain adequately controlled. Added schedule laxative. Consider transition to sublingual medication in the next 12:48 p.m. if he remains stable. 10/20 Increased Morphine from 1 mg/hr to 2 mg/hr and bolus to 4 mg q 2 hr prn. D/w prognosis with nephew at bedside increased morphine infusion to 4 milligram/hour and bolus to 8 mg q.2 hours p.r.n.. Discussed care and prognosis with 2 nephews, brother, and [id number] at bedside. (2) Incarcerated hernia: Code(s): K46.0 - Unspecified abdominal hernia with obstruction, without gangrene Status: Acute Assessment and Plan: Not a surgical candidate (3) Chronic hyponatremia: Code(s): E87.1 - Hypo-osmolality and hyponatremia Status: Acute (4) Cirrhosis, alcoholic: Qualifiers: Ascites presence: with ascites Qualified Code(s): K70.31 - Alcoholic cirrhosis of liver with ascites Code(s): K70.30 - Alcoholic cirrhosis of liver without ascites Status: Acute Subjective Date/time seen: 10/21/22 16:43 Interval history: Sleeping since 10/20 afternoon. No p.o. intake. Was moaning intermittently 10/21 in a.m. comfortable since morphine drip increased. Review of Systems Review of Systems: ROS unobtainable: Yes unobtainable due to medical condition Exam Narrative: Elderly gentleman lying in hospital bed and unresponsive to verbal or tactile stimuli. Sclerae nonicteric, oral mucosa pink and moist Neck without JVD Chest decreased breath sounds at bases Heart regular rate no audible murmur normal S1 and S2 Abdomen protuberant but soft no palpable organomegaly, firm tender mass right groin Extremities 4+ mixed pitting and nonpitting edema bilateral lower extremities distally and 2+ in thighs Musculoskeletal without gross deformity to visual inspection Neurologic cranial nerves 2-12 intact to visual inspection Psychiatric Unresponsive to verbal stimuli and responds only to palpation of hernia for tactile stimuli. Objective Data Vital Signs Vital Signs: Vital Signs - 24 hr 10/20/22 17:54 10/20/22 17:54 10/20/22 20:00 Temperature 97.6 F Pulse Rate 63 63 105 H Respiratory Rate 14 12 18 Blood Pressure 83/43 L Pulse Oximetry 80 L Oxygen Delivery Oxygen Flow Rate 10/21/22 08:00 10/21/22 08:00 Temperature 98.1 F Pulse Rate 108 H Respiratory Rate 14 Blood Pressure 56/24 L Pulse Oximetry 89 L 91 Oxygen Delivery Nasal Cannula Oxygen Flow Rate 2 Intake/Output Intake/Output: Intake & Output 10/18/22 10/19/22 10/20/22 10/21/22 23:59 23:59 23:59 23:59 Intake Total 1322 249 300 100 Output Total 1400 200 450 50 Balance -78 49 -150 50 Meds/Results Medications: Active Medications Generic Name Dose Route Start Last Admin Trade Name Freq PRN Reason Stop Dose Admin Acetaminophen 650 mg 10/16/22 13:25 Acetaminophen 650 Mg Suppository RECTAL Q4H PRN Fever Artificial Tears 1 drop 10/16/22 13:22 Artificial Tears Ophth Soln 15 Ml Bottle EACH EYE Q4H PRN Dry Eye(s) Bisacodyl 10 mg 10/16/22 13:25 10/20/22 17:50 Bisacodyl 10 Mg Suppository RECTAL 10 mg DAILY PRN Administration Constipation Glycopyrrolate 0.1 mg 10/17/22 09:13 10/20/22 21:39 Glycopyrrolate Inj (*Sp) 0.2 Mg/Ml Vial IV PUSH 0.1 mg Q6H PRN Administration Secretions Morphine Sulfate 50 mg in 100 mls @ 8 mls/hr 10/16/22 14:00 10/21/22 15:16 IV CONT 4 mg/hr .[id number] WENDY 8 mls/hr Administration Lorazepam 1 mg 10/17/22 20:42 10/21/22 08:21 Lorazepam Inj (*Crx) 2 Mg/Ml Vial IV PUSH 1 mg Q6H PRN Administration Anxiety Morphine Sulfate 8 mg 10/21/22 11:35 10/21/22 12:53 [place]
[2022-10-21 20:00] VITALS: BP 86/29; PULSE 102; RESP 15; TEMP 37; O2SAT 90
[2022-10-22] MEDS: GLYCOPYRROLATE INJ (*SP) 0.2 MG/ML VIAL 0.1 MG IV PUSH (00:02)
[2022-10-22 01:16] VITALS: O2SAT 90
--- NOTE | 2022-10-22 03:02 | PC.NURSE ---
1631 FAMILY CAME OUT TO DESK STATED PT HAD . PT WITHOUT HR OR RESP. CHARGE NURSE JIMMIE NOTIFIED
--- NOTE | 2022-10-22 04:01 | PC.NURSE ---
PT SHROUDED AND TO [facility]
--- NOTE | 2022-10-22 20:38 | PM.DDS ---
Discharge Summary Date and Time Date of : 10/22/22 Time of : 02:30 Provider Pronounced By: Natacha Baum RN/Reuben Guzman RN Probable Cause of Probable Cause of : Strangulated right inguinal hernia that was inoperable due to end stage liver disease due to alcoholic cirrhosis Summary Hospital Course: Admitted to inpatient hospice service for control of pain. Medications were titrated to comfort. Mr. Rubi peacefully. Additional Data Confirmation of as documented by pronouncing clinician: Pupillary Reflex, Palpable Pulses, Response to Stimuli, Heart Tones and Breath Sounds Name of Provider Notified: Cata Time Provider Notified: 02:48 Salesperson Corsets Notified: Yes Date [facility] Notified of : 10/22/22 Time [facility] Notified of : 02:41
== END 2022-10-16 10:43 | disposition hospice, inpatient (51) ==
LOC: ANHED 08:13 → ANH3MEDSUR 11:46
PROVIDERS: Emergency Medicine; Emergency Provider Emergency Medicine; PCP Internal Medicine; Visit Provider Internal Medicine
DX: K70.31 Alcoholic cirrhosis of liver with ascites (principal); K40.30 Unilateral inguinal hernia, with obstruction, without gangrene, not specified as recurrent; Z51.5 Encounter for palliative care; E87.1 Hypo-osmolality and hyponatremia; D61.818 Other pancytopenia; Z86.010 Personal history of colon polyps; K76.9 Liver disease, unspecified; J90 Pleural effusion, not elsewhere classified
CPT/HCPCS: 36415; 74177; 80053; 81001; 83605; 85025; 85055; 85610; 85730; 86850; 86900; 86901; 96365; 96375; 96376; 99285; A9270; J0780; J1200; J2060; J2270; J2405; J2543; J2765; J3010; Q9967

== ENCOUNTER 2022-10-16 10:44 | HOS | payer OTHER, SELFPAY ==
--- NOTE | 2022-10-16 11:28 | HP_ITS ---
This report was moved to the correct visit on 10/29/2022. Original report was signed by Nii Montana MD on 10/16/22 1128. ADDENDUM Patient admitted to hospice service from ER Addendum Documented By: Nii Montana MD 10/17/22818 Addendum Signed By: <Electronically signed by Nii Montana MD>10/08 H&P: HPI History of Present Illness Date/Time: 10/16/22 11:27 Chief Complaint: 67-year-old male with history of cirrhosis presenting with 3 hours onset of severe pain to his right lower abdomen.? Also reports nausea and vomiting. Review of Systems Review of Systems: Ten point review of systems negative except as stated in HPI PMFSH Past Medical History Medical History Adenomatous colon polyp Ascites Chronic hyponatremia Cirrhosis, alcoholic History of alcohol abuse Leg edema Pancytopenia Positive colorectal cancer screening using Cologuard test Family History Family History Father Family history of malignant neoplasm of urinary bladder, Onset Age: 3 Other Family history of malignant neoplasm Social History Social History Social History: Resides in his own home. Still works part-time for the [employer] for the [employer]. Does mainly paperwork. Quit drinking in February of 2022, was about 12 beers per day for many years. Smoking status: Never smoker Alcohol intake: former Drinks per week: 6 Substance use: never Lack of Transportation: No Lack of Food: Never True Current Housing: I Have Housing Concerned About Future Housing: No Difficulty Paying Gas/Electric Bills: No Difficulty Paying for Meds: No Currently Unemployed: No Education: High School Diploma/GED Difficulty w/ Childcare or Family Care: No Living arrangements: alone Occupation/Education: occupation Spiritual care concerns: No Meds Home Medications and Allergies Home Medications Medication Instructions Recorded Confirmed Type cholecalciferol (vitamin D3) 62.5 62.5 mcg PO DAILY 06/27/22 10/05/22 History mcg (2,500 unit) capsule ferrous sulfate 325 mg (65 mg 325 mg PO .Every Other Day 06/27/22 10/05/22 History iron) tablet magnesium oxide 400 mg PO BID 06/27/22 10/05/22 History vit B complex 100 combo no.2 100 1 tablet PO DAILY 06/27/22 10/05/22 History mg tablet,extended release (B-100 Complex ER) zinc sulfate 50 mg zinc (220 mg) 50 mg PO DAILY #30 caps 06/27/22 10/05/22 Rx capsule furosemide 20 mg tablet 60 mg PO QAM 1 month #90 tabs 09/26/22 10/05/22 Rx spironolactone 50 mg tablet 150 mg PO DAILY 1 month #90 tabs 09/26/22 10/05/22 Rx Allergies Allergy/AdvReac Type Severity Reaction Status Date / Time No Known Allergies Allergy Mild Verified 09/26/22 09:36 Vital Signs Vital Signs - 24 hr 10/16/22 00:32 10/16/22 00:41 10/16/22 00:45 Temperature 97.6 F Pulse Rate 65 78 80 Respiratory Rate 18 25 H 22 H Blood Pressure 148/60 H Pulse Oximetry 100 Oxygen Delivery Room Air 10/16/22 00:46 10/16/22 01:00 10/16/22 01:02 Temperature Pulse Rate 89 74 71 Respiratory Rate 13 20 15 Blood Pressure 164/
--- NOTE | 2022-10-16 16:17 | HP_ITS ---
This report was moved to the correct visit on 10/29/2022. Original report was signed by Awais Ivy MD on 10/16/22 [id number]. H&P: HPI History of Present Illness Date/Time: 10/16/22 16:16 Chief Complaint: Uncontrolled pain Narrative: This unfortunate 67-year-old gentleman with alcohol-induced cirrhosis with associated ascites and edema requiring Jan current paracenteses for control of fluid was in his usual state of health until the day before admission. That he may experience the onset of severe pain in the right lower abdomen. He has a known inguinal hernia that he had been reducing intermittently when he had discomfort that was mild. Pain yesterday became severe. Hard lump developed in the right groin. The presented the emergency room where he was found by scanning to have an incarcerated hernia. He had associated nausea vomiting. No bowel movement since a day or 2 ago. No abnormal bleeding. No hematemesis. Denied chest pain or shortness of breath. Chronic edema is stable. Denied focal weakness or numbness. No appetite. Has not eaten for at least 2 days. Has been losing weight and strength. Because of his poor physical health declining functional status and severe operative risk he opted for comfort care on inpatient hospice service. Review of Systems Review of Systems: All systems reviewed & are unremarkable except as noted in HPI and below PMFSH Past Medical History Medical History Adenomatous colon polyp Ascites Chronic hyponatremia Cirrhosis, alcoholic History of alcohol abuse Leg edema Pancytopenia Positive colorectal cancer screening using Cologuard test Family History Family History Father Family history of malignant neoplasm of urinary bladder, Onset Age: 3 Other Family history of malignant neoplasm Social History Social History (Updated 10/16/22 @ 16:17 by Awais Ivy MD) Social History: Resides in his own home. Still works part-time for the [employer] for [employer]. Does mainly paperwork. Quit drinking in February of 2022, was about 12 beers per day for many years. Code status: DNR Smoking status: Never smoker Alcohol intake: former Drinks per week: 100 Substance use: never Lack of Transportation: No Lack of Food: Never True Current Housing: I Have Housing Concerned About Future Housing: No Difficulty Paying Gas/Electric Bills: No Difficulty Paying for Meds: No Currently Unemployed: No Education: Trade/Vocational Certificate Difficulty w/ Childcare or Family Care: No Living arrangements: alone Occupation/Education: occupation Spiritual care concerns: No Meds Home Medications and Allergies Home Medications Medication Instructions Recorded Confirmed Type cholecalciferol (vitamin D3) 62.5 62.5 mcg PO DAILY 06/27/22 10/05/22 History mcg (2,500 unit) capsule ferrous sulfate 325 mg (65 mg 325 mg PO .Every Other Day 06/27/22 10/05/22 History iron) tablet magnesium oxide 400 mg PO BID 06/27/22 10/05/22 History vit B complex 100 combo no.2 100 1 tablet PO DAILY 06/27/22 10/05/22 History mg tablet,extended release (B-100 Complex ER) zinc sulfate 50 mg zinc (220 mg) 50 mg PO DAILY #30 caps 06/27/22 10/05/22 Rx capsule furosemide 20 mg tablet 60 mg PO QAM 1 month #90 tabs 09/26/22 10/05/22 Rx spironolactone 50 mg tablet 150 mg PO DAILY 1 month #90 tabs 09/26/22 10/05/22 Rx Allergies Allergy/AdvReac Type Severity Reaction Status Date / T
--- NOTE | 2022-10-17 21:03 | PN_ITS ---
This report was moved to the correct visit on 10/29/2022. Original report was signed by Awais Ivy MD on 10/17/222102. Progress Note: A&P Assessment and Plan (1) Palliative care encounter: Code(s): Z51.5 - Encounter for palliative care Status: Acute Assessment and Plan: * Meet inpatient hospice criteria due to requiring continues IV morphine for analgesia * 10/17/2022 pain adequately controlled. Add schedule laxative. Consider transition to sublingual medication in the next 12:48 p.m. if he remains stable. (2) Incarcerated hernia: Code(s): K46.0 - Unspecified abdominal hernia with obstruction, without gangrene Status: Acute Assessment and Plan: * Not a surgical candidate (3) Chronic hyponatremia: Code(s): E87.1 - Hypo-osmolality and hyponatremia Status: Acute (4) Cirrhosis, alcoholic: Code(s): K70.30 - Alcoholic cirrhosis of liver without ascites Status: Acute Subjective Date/time seen: 10/17/22 21:01 Interval history: Ate about 50% of food today. Pain control with continuous IV morphine. Intermittent nausea but no emesis. No bowel movement. Review of Systems Review of Systems: All systems reviewed & are unremarkable except as noted in HPI and below Exam Narrative: Elderly gentleman lying in hospital bed in no acute distress with IV morphine infusing continuously. Appears older than stated age. Sclerae nonicteric, oral mucosa pink and moist Neck without JVD Chest decreased breath sounds at bases Heart regular rate no audible murmur normal S1 and S2 Abdomen protuberant but soft no palpable organomegaly, firm tender mass right groin Extremities 4+ mixed pitting and nonpitting edema bilateral lower extremities distally and 2+ in thighs Musculoskeletal without gross deformity to visual inspection Neurologic cranial nerves 2-12 intact to visual inspection Psychiatric alert oriented person place and time Objective Data Vital Signs Vital Signs: Vital Signs - 24 hr 10/16/22 22:19 10/17/22 08:19 10/17/22 08:00 Temperature 96.9 F L Pulse Rate 106 H Respiratory Rate 16 Blood Pressure 111/72 Pulse Oximetry 96 96 Oxygen Delivery Room Air Room Air 10/17/22 14:51 10/17/22 14:51 10/17/22 15:43 Temperature 98.2 F Pulse Rate 106 H 106 H 98 Respiratory Rate 16 16 16 Blood Pressure 108/63 Pulse Oximetry 98 Oxygen Delivery Intake/Output Intake/Output: Intake & Output 10/14/22 10/15/22 10/16/22 10/17/22 23:59 23:59 23:59 23:59 Intake Total 0 1008.3 Output Total 250 25 Balance -250 983.3 Meds/Results Medications: Active Medications Generic Name Dose Route Start Last Admin Trade Name Freq PRN Reason Stop Dose Admin Acetaminophen 650 mg 10/16/22 13:25 Acetaminophen 650 Mg Suppository RECTAL Q4H PRN Fever Artificial Tears 1 drop 10/16/22 13:22 Artificial Tears Ophth Soln 15 Ml Bottle EACH EYE Q4H PRN Dry Eye(s) Bisacodyl 10 mg 10/16/22 13:25 Bisacodyl 10 Mg Suppository RECTAL DAILY PRN Constipation Glycopyrrolate 0.1 mg 10/17/22 09:13 Glycopyrrolate Inj (*Sp) 0.2 Mg/Ml Vial IV PUSH Q6H PRN Secretions Morphine Sulfate 50 mg in 100 mls @ 2 mls/hr 10/16/22 14:00 10/17/22 14:51 IV CONT 1 mg/hr .Q24H WENDY 2 mls/hr Administration 1 MG/HR L
--- NOTE | 2022-10-18 06:57 | PN_ITS ---
This report was moved to the correct visit on 10/29/2022. Original report was signed by Awais Ivy MD on 10/18/22 0658. Progress Note: A&P Assessment and Plan (1) Palliative care encounter: Code(s): Z51.5 - Encounter for palliative care Status: Acute Assessment and Plan: * Meet inpatient hospice criteria due to requiring continues IV morphine for analgesia * 10/18/2022 pain adequately controlled. Added schedule laxative. Consider transition to sublingual medication in the next 12:48 p.m. if he remains stable. (2) Incarcerated hernia: Code(s): K46.0 - Unspecified abdominal hernia with obstruction, without gangrene Status: Acute Assessment and Plan: * Not a surgical candidate (3) Chronic hyponatremia: Code(s): E87.1 - Hypo-osmolality and hyponatremia Status: Acute (4) Cirrhosis, alcoholic: Code(s): K70.30 - Alcoholic cirrhosis of liver without ascites Status: Acute Subjective Date/time seen: 10/18/22 06:56 Interval history: Tolerating diet. Pain control with continuous IV morphine. Intermittent nausea but no emesis. No bowel movement. Review of Systems Review of Systems: All systems reviewed & are unremarkable except as noted in HPI and below Exam Narrative: Elderly gentleman lying in hospital bed in no acute distress with IV morphine infusing continuously. Appears older than stated age. Sclerae nonicteric, oral mucosa pink and moist Neck without JVD Chest decreased breath sounds at bases Heart regular rate no audible murmur normal S1 and S2 Abdomen protuberant but soft no palpable organomegaly, firm tender mass right groin Extremities 4+ mixed pitting and nonpitting edema bilateral lower extremities distally and 2+ in thighs Musculoskeletal without gross deformity to visual inspection Neurologic cranial nerves 2-12 intact to visual inspection Psychiatric alert oriented person place and time Objective Data Vital Signs Vital Signs: Vital Signs - 24 hr 10/17/22 08:19 10/17/22 08:00 10/17/22 14:51 Temperature Pulse Rate 106 H Respiratory Rate 16 Blood Pressure Pulse Oximetry 96 Oxygen Delivery Room Air Room Air 10/17/22 14:51 10/17/22 15:43 10/17/22 20:00 Temperature 98.2 F Pulse Rate 106 H 98 Respiratory Rate 16 16 Blood Pressure 108/63 Pulse Oximetry 98 Oxygen Delivery Room Air 10/17/22 21:33 10/17/22 20:45 Temperature 98.1 F Pulse Rate 103 H Respiratory Rate 18 Blood Pressure 106/60 Pulse Oximetry 92 93 Oxygen Delivery Autopap Intake/Output Intake/Output: Intake & Output 10/15/22 10/16/22 10/17/22 10/18/22 23:59 23:59 23:59 23:59 Intake Total 0 1408.3 400 Output Total 620 382 7659 Balance -250 1283.3 -800 Meds/Results Medications: Active Medications Generic Name Dose Route Start Last Admin Trade Name Freq PRN Reason Stop Dose Admin Acetaminophen 650 mg 10/16/22 13:25 Acetaminophen 650 Mg Suppository RECTAL Q4H PRN Fever Artificial Tears 1 drop 10/16/22 13:22 Artificial Tears Ophth Soln 15 Ml Bottle EACH EYE Q4H PRN Dry Eye(s) Bisacodyl 10 mg 10/16/22 13:25 Bisacodyl 10 Mg Suppository RECTAL DAILY PRN Constipation Glycopyrrolate 0.1 mg 10/17/22 09:13 Glycopyrrolate Inj (*Sp) 0.2 Mg/Ml Vial IV PUSH Q6H PRN
--- NOTE | 2022-10-19 14:56 | PN_ITS ---
This report was moved to the correct visit on 10/29/2022. Original report was signed by Tessa Yen DO on 10/19/22 [id number]. Progress Note: A&P Assessment and Plan (1) Palliative care encounter: Code(s): Z51.5 - Encounter for palliative care Status: Acute Assessment and Plan: * Meet inpatient hospice criteria due to requiring continues IV morphine for analgesia, on continuous drip and getting prn doses. * 10/19/2022 pain adequately controlled. Added schedule laxative. Still no BM but on miralax now. (2) Incarcerated hernia: Code(s): K46.0 - Unspecified abdominal hernia with obstruction, without gangrene Status: Acute Assessment and Plan: * Not a surgical candidate (3) Chronic hyponatremia: Code(s): E87.1 - Hypo-osmolality and hyponatremia Status: Acute (4) Ascites: Qualifiers: Ascites type: due to alcoholic cirrhosis Qualified Code(s): K70.31 - Alcoholic cirrhosis of liver with ascites Code(s): R18.8 - Other ascites Status: Acute Subjective Date/time seen: 10/19/22 14:44 Interval history: Has required several doses of prn morphine in addition to the continuous drip. Reports pain controlled right now. Drinking fairly well but not eating much. No BM, took some miralax today. Exam Const: General: no acute distress, alert, awake and tired appearing Orientation/consciousness: patient oriented x3 Resp: Effort & Inspection: normal respiratory effort Auscultation: clear to auscultation bilaterally Cardio: Rate: regular rate and tachycardic GI: Inspection: distended Other: Abdomen distended with ascites Extrem: Other: 4+ bilateral LE edema Objective Data Vital Signs Vital Signs: Vital Signs - 24 hr 10/18/22 20:00 10/18/22 20:00 10/19/22 14:17 Temperature 36.7 C Pulse Rate 114 H 114 H 64 Respiratory Rate 20 20 16 Blood Pressure 89/55 L Pulse Oximetry 95 95 Oxygen Delivery Autopap 10/19/22 14:17 Temperature Pulse Rate 64 Respiratory Rate 16 Blood Pressure Pulse Oximetry Oxygen Delivery Intake/Output Intake/Output: Intake & Output 10/16/22 10/17/22 10/18/22 10/19/22 23:59 23:59 23:59 23:59 Intake Total 0 1408.3 1322 249 Output Total 638 677 0471 100 Balance -250 1283.3 -78 149 Meds/Results Medications: Active Medications Generic Name Dose Route Start Last Admin Trade Name Freq PRN Reason Stop Dose Admin Acetaminophen 650 mg 10/16/22 13:25 Acetaminophen 650 Mg Suppository RECTAL Q4H PRN Fever Artificial Tears 1 drop 10/16/22 13:22 Artificial Tears Ophth Soln 15 Ml Bottle EACH EYE Q4H PRN Dry Eye(s) Bisacodyl 10 mg 10/16/22 13:25 Bisacodyl 10 Mg Suppository RECTAL DAILY PRN Constipation Glycopyrrolate 0.1 mg 10/17/22 09:13 Glycopyrrolate Inj (*Sp) 0.2 Mg/Ml Vial IV PUSH Q6H PRN Secretions Morphine Sulfate 50 mg in 100 mls @ 2 mls/hr 10/16/22 14:00 10/19/22 14:17 IV CONT 1 mg/hr .Q24H WENDY 2 mls/hr Administration 1 MG/HR Lorazepam 1 mg 10/17/22 20:42 Lorazepam Inj (*Crx) 2 Mg/Ml Vial IV PUSH Q6H PRN Anxiety Morphine Sulfate 2 mg 10/16/22 13:20 10/19/22 09:09 Morphine Sulfate (*Crx) 2 Mg/Ml Inj IV PUSH 2 mg Q2H PRN Admin
--- NOTE | 2022-10-20 19:49 | PN_ITS ---
This report was moved to the correct visit on 10/29/2022. Original report was signed by Awais Ivy MD on 10/20/221958. Progress Note: A&P Assessment and Plan (1) Palliative care encounter: Code(s): Z51.5 - Encounter for palliative care Status: Acute Assessment and Plan: * Meet inpatient hospice criteria due to requiring continues IV morphine for analgesia * 10/18/2022 pain adequately controlled. Added schedule laxative. Consider transition to sublingual medication in the next 12:48 p.m. if he remains stable. * 10/20 Increased Morphine from 1 mg/hr to 2 mg/hr and bolus to 4 mg q 2 hr prn. D/w prognosis with nephew at bedside (2) Incarcerated hernia: Code(s): K46.0 - Unspecified abdominal hernia with obstruction, without gangrene Status: Acute Assessment and Plan: * Not a surgical candidate (3) Chronic hyponatremia: Code(s): E87.1 - Hypo-osmolality and hyponatremia Status: Acute (4) Cirrhosis, alcoholic: Qualifiers: Ascites presence: with ascites Qualified Code(s): K70.31 - Alcoholic cirrhosis of liver with ascites Code(s): K70.30 - Alcoholic cirrhosis of liver without ascites Status: Acute Subjective Date/time seen: 10/20/22 19:47 Interval history: Was more alert earlier today while his estranged brother visited. Nephew at bedside this afternoon. Reports sleeping with some moaning and not arousing at all this evening. Review of Systems Review of Systems: ROS unobtainable: Yes unobtainable due to medical condition Exam Narrative: Elderly gentleman lying in hospital bed moaning with every breath. Sclerae nonicteric, oral mucosa pink and moist Neck without JVD Chest decreased breath sounds at bases Heart regular rate no audible murmur normal S1 and S2 Abdomen protuberant but soft no palpable organomegaly, firm tender mass right groin Extremities 4+ mixed pitting and nonpitting edema bilateral lower extremities distally and 2+ in thighs Musculoskeletal without gross deformity to visual inspection Neurologic cranial nerves 2-12 intact to visual inspection Psychiatric Unresponsive to verbal stimuli and responds only to palpation of hernia for tactile stimuli. Objective Data Vital Signs Vital Signs: Vital Signs - 24 hr 10/19/22 20:00 10/19/22 21:32 10/20/22 07:20 Temperature 97.9 F Pulse Rate 110 H Respiratory Rate 18 Blood Pressure 85/51 L Pulse Oximetry 94 94 Oxygen Delivery Room Air Room Air 10/20/22 08:00 10/20/22 17:54 10/20/22 17:54 Temperature 97.1 F L Pulse Rate 88 63 63 Respiratory Rate 12 14 12 Blood Pressure 95/53 L Pulse Oximetry 94 Oxygen Delivery Intake/Output Intake/Output: Intake & Output 10/17/22 10/18/22 10/19/22 10/20/22 23:59 23:59 23:59 23:59 Intake Total 1408.3 1322 249 200 Output Total 125 1400 200 450 Balance 1283.3 -78 49 -250 Meds/Results Medications: Active Medications Generic Name Dose Route Start Last Admin Trade Name Freq PRN Reason Stop Dose Admin Acetaminophen 650 mg 10/16/22 13:25 Acetaminophen 650 Mg Suppository RECTAL Q4H PRN Fever Artificial Tears 1 drop 10/16/22 13:22 Artificial Tears Ophth Soln 15 Ml Bottle EACH EYE Q4H PRN Dry Eye(s) Bisacodyl 10 mg 10/16/22 13:25 10/20/22 17:50 Bisacodyl 10 Mg Suppository RECTAL 10 mg DAILY PRN Administration Constipation
--- NOTE | 2022-10-21 16:46 | PN_ITS ---
This report was moved to the correct visit on 10/29/2022. Original report was signed by Awais Ivy MD on 10/21/22 1122. Progress Note: A&P Assessment and Plan (1) Palliative care encounter: Code(s): Z51.5 - Encounter for palliative care Status: Acute Assessment and Plan: * Meet inpatient hospice criteria due to requiring continues IV morphine for analgesia * 10/18/2022 pain adequately controlled. Added schedule laxative. Consider transition to sublingual medication in the next 12:48 p.m. if he remains stable. * 10/20 Increased Morphine from 1 mg/hr to 2 mg/hr and bolus to 4 mg q 2 hr prn. D/w prognosis with nephew at bedside * increased morphine infusion to 4 milligram/hour and bolus to 8 mg q.2 hours p.r.n.. Discussed care and prognosis with 2 nephews, brother, and [id number] at bedside. (2) Incarcerated hernia: Code(s): K46.0 - Unspecified abdominal hernia with obstruction, without gangrene Status: Acute Assessment and Plan: * Not a surgical candidate (3) Chronic hyponatremia: Code(s): E87.1 - Hypo-osmolality and hyponatremia Status: Acute (4) Cirrhosis, alcoholic: Qualifiers: Ascites presence: with ascites Qualified Code(s): K70.31 - Alcoholic cirrhosis of liver with ascites Code(s): K70.30 - Alcoholic cirrhosis of liver without ascites Status: Acute Subjective Date/time seen: 10/21/22 16:43 Interval history: Sleeping since 10/20 afternoon. No p.o. intake. Was moaning intermittently 10/21 in a.m. comfortable since morphine drip increased. Review of Systems Review of Systems: ROS unobtainable: Yes unobtainable due to medical condition Exam Narrative: Elderly gentleman lying in hospital bed and unresponsive to verbal or tactile stimuli. Sclerae nonicteric, oral mucosa pink and moist Neck without JVD Chest decreased breath sounds at bases Heart regular rate no audible murmur normal S1 and S2 Abdomen protuberant but soft no palpable organomegaly, firm tender mass right groin Extremities 4+ mixed pitting and nonpitting edema bilateral lower extremities distally and 2+ in thighs Musculoskeletal without gross deformity to visual inspection Neurologic cranial nerves 2-12 intact to visual inspection Psychiatric Unresponsive to verbal stimuli and responds only to palpation of hernia for tactile stimuli. Objective Data Vital Signs Vital Signs: Vital Signs - 24 hr 10/20/22 17:54 10/20/22 17:54 10/20/22 20:00 Temperature 97.6 F Pulse Rate 63 63 105 H Respiratory Rate 14 12 18 Blood Pressure 83/43 L Pulse Oximetry 80 L Oxygen Delivery Oxygen Flow Rate 10/21/22 08:00 10/21/22 08:00 Temperature 98.1 F Pulse Rate 108 H Respiratory Rate 14 Blood Pressure 56/24 L Pulse Oximetry 89 L 91 Oxygen Delivery Nasal Cannula Oxygen Flow Rate 2 Intake/Output Intake/Output: Intake & Output 10/18/22 10/19/22 10/20/22 10/21/22 23:59 23:59 23:59 23:59 Intake Total 1322 249 300 100 Output Total 1400 200 450 50 Balance -78 49 -150 50 Meds/Results Medications: Active Medications Generic Name Dose Route Start Last Admin Trade Name Freq PRN Reason Stop Dose Admin Acetaminophen 650 mg 10/16/22 13:25 Acetaminophen 650 Mg Suppository RECTAL
--- NOTE | 2022-10-22 20:40 | DS_ITS ---
This report was moved to the correct visit on 10/29/2022. Original report was signed by Awais Ivy MD on 10/22/222039. Discharge Summary Date and Time Date of : 10/22/22 Time of : 02:30 Provider Pronounced By: Natacha Baum RN/Reuben Guzman RN Probable Cause of Probable Cause of : Strangulated right inguinal hernia that was inoperable due to end stage liver disease due to alcoholic cirrhosis Summary Hospital Course: Admitted to inpatient hospice service for control of pain. Medications were titrated to comfort. Mr. Rubi peacefully. Additional Data Confirmation of as documented by pronouncing clinician: Pupillary Reflex, Palpable Pulses, Response to Stimuli, Heart Tones and Breath Sounds Name of Provider Notified: Cata Time Provider Notified: 02:48 Painter And Decorator Apprentice Notified: Yes Date [facility] Notified of : 10/22/22 Time [facility] Notified of : 02:41 This report may have been done utilizing a voice recognition system. Attempts have been made to correct errors. However, there may be uncorrected grammatical, spelling, and recognition errors present. Report Initialized date/time: Awais Ivy MD 10/22/222039 Electronically signed by: Awais Ivy MD 10/22/222039 [facility]
== END 2022-10-22 02:30 | disposition expired | DRG 951 ==
PROVIDERS: Admitting Provider Internal Medicine; PCP Internal Medicine; Visit Provider Internal Medicine
DX: Z51.5 Encounter for palliative care (principal); K40.30 Unilateral inguinal hernia, with obstruction, without gangrene, not specified as recurrent; E87.1 Hypo-osmolality and hyponatremia; K70.31 Alcoholic cirrhosis of liver with ascites
CPT/HCPCS: 36415; 74177; 80053; 81001; 83605; 85025; 85055; 85610; 85730; 86850; 86900; 86901; 96365; 96375; 96376; 99285; A9270; J0780; J1200; J2060; J2270; J2405; J2543; J2765; J3010; Q9967